=== PATIENT | female | born 1995 | race Caucasian/White ===

== ENCOUNTER 2021-04-13 17:03 | Emergency (ER) | payer MEDICAID, SELFPAY ==
[2021-04-13 19:03] LABS: MANUAL DIFF FLAG NO
[2021-04-13 19:05] LABS: Basophils Percent Auto 0.2 % (0-2); Eosinophils Absolute Auto 0.1 X10*3/uL (0.0-0.4); Eosinophils Percent Auto 1.5 % (0-4); Hematocrit 40.4 % (37-47); Imm Gran Abs Auto 0.02 X10*3/uL (0.00-0.03); Imm Gran Pct Auto 0.2 % (0.0-0.4); Lymphocytes Absolute Auto 2.4 X10*3/uL (1.2-4.9); Lymphocytes Percent Auto 27.6 % (20-40); Mean Corpuscular HGB Conc 34.7 g/dl (31.0-35.0); Mean Corpuscular Hemoglobin 32.4 pg (27.0-33.0); Mean Corpuscular Volume 93.5 fL (80-98); Mean Platelet Volume 9.8 fL (9.4-12.3); Monocytes Absolute Auto 0.5 X10*3/uL (0.1-1.2); Monocytes Percent Auto 5.5 % (2-11); Neutrophils Absolute Auto 5.7 X10*3/uL (2.0-8.3); Platelet Count 202 X10*3/uL (160-400); Red Blood Count 4.32 X10*6/uL (4.20-5.50); Red Cell Distribution Width 12.5 % (11.0-16.0); White Blood Count 8.8 X10*3/uL (4.8-10.8)
[2021-04-13 19:27] LABS: Alanine Aminotransferase 17 U/L (0-31); Albumin Level 3.7 g/dL (3.5-5.0); Alkaline Phosphatase 51 U/L (39-117); Anion Gap 11 (12-20); Aspartate Amino Transferase 17 U/L (5-31); Bilirubin Total 0.2 mg/dL (0.0-1.0); Blood Urea Nitrogen 11 mg/dL (9-16); Calcium 9.3 mg/dL (8.4-10.2); Carbon Dioxide 25 mmol/L (22-29); Chloride 105 mmol/L (96-108); Estimated Glomerular Filt Rate > 60; Glucose Random 104 mg/dL (60-115); Potassium 3.9 mmol/L (3.3-5.1); Sodium 137 mmol/L (135-145); Total Protein 6.9 g/dL (6.5-8.0)
[2021-04-13 21:13] VITALS: BP 106/60; PULSE 67; RESP 16; TEMP 36.8; O2SAT 97; BMI 35.5
[2021-04-13 21:34] LABS: Appearance Urine CLEAR; Color Urine YELLOW; Glucose Urine UA NEG (NEG); Leukocyte Esterase Urine NEG (NEG); Nitrite Urine NEG (NEG); Specific Gravity - Urine 1.025 (1.005-1.025); Urine Blood NEG (NEG); Urine Ketones NEG (NEG); Urine Protein NEG (NEG-TRACE)
[2021-04-13 21:36] LABS: UPreg QC Valid YES; Urine Pregnancy POSITIVE (NEGATIVE)
[2021-04-13 21:51] VITALS: BP 104/61; PULSE 61; RESP 15; TEMP 36.8; O2SAT 99
--- NOTE | 2021-04-13 22:10 | ED.PREGNANCY ---
HPI - General Chief complaint: Dyspnea Stated complaint: Dizziness/Weakness/+Preg Time Seen by Provider: 04/13/21 22:10 Source: patient Mode of arrival: ambulatory History of Present Illness HPI Narrative: 26-year-old female presents with feelings of dizziness and ?fainting?. Her LMP is early January but she states it was shorter than usual. Her dizziness episodes have not been associated with any recent travel, fevers, chills, respiratory for chest pain and denies any nausea, vomiting, abdominal pain, diarrhea, back pain, urinary pain/burning/frequency. Patient sources that she has recently taken a test which was positive and set up an appointment last week for her 1st OB appointment in the part april. Related Data Allergies Allergy/AdvReac Type Severity Reaction Status Date / Time No Known Allergies Allergy Verified 04/13/21 21:12 [No Known Allergies*] Review of Systems Review of Systems: Pertinent positives and negatives as stated in HPI 10 point review of systems is otherwise negative. PMFSH Past Medical History Source: nursing notes reviewed Medical History No known health problems Social History Social History Alcohol intake: never Patient Tobacco Use Status: Never used Tobacco Use of substances other than those prescribed or required for medical reasons: No Advance Directives: No Advance Directives Information Provided: No Physical Exam Vital Signs: Vital Signs: Last Vital Signs Temp 98.2 F 04/13/21 21:51 Pulse 61 04/13/21 21:51 Resp 15 04/13/21 21:51 BP 104/61 04/13/21 21:51 Pulse Ox 99 04/13/21 21:51 Body Mass Index 35.5 VITAL SIGNS: Reviewed. GENERAL: Well developed, well nourished, in no acute distress. HEAD: Normocephalic/atrumatic, EYES: PERRLA, EOMI OROPHARYNX: no oral lesions noted, posterior pharynx clear, moist mucosa NECK: Supple, no adenopathy LUNGS: Normal breath sounds. No adventitious sounds or accessory muscle use. SpO2<99> CARDIOVASCULAR: Regular rate and rhythm without noted murmurs, no JVD or lower extremity edema. ABDOMEN: Soft, non-tender, non-distended with bowel sounds, no CVA tenderness MUSCULOSKELETAL: No tenderness, deformities, or effusions noted on gross inspection. EXTREMITIES: No cyanosis, clubbing or edema. SKIN: Inspection of the skin reveals no rashes NEUROLOGIC: Alert and oriented x 4. Strength and sensation to light touch were grossly intact x 4. Bedside ultrasound: On gross evaluation there is good movement with noted cardiac movement, IUP Course Course Course Narrative: 26-year-old female with history and clinical presentation consistent with vasovagal near-syncope episodes and review of all investigations is otherwise negative. She was counseled extensively on appropriate nutrition and was involved with the bedside ultrasound with demonstration of her fetus movement within the uterus and there is no history to suggest any ectopic features. Patient understands that the ultrasound was strictly a check to see that this fetus was within the uterus and that it is surmised she may be further along than 8 weeks. She was instructed to continue/start vitamins, drink plenty of fluids, and avoid cigarette smoking/alcohol/marijuana/drugs and to also avoid external exposure when possible. MDM - OB/Uterine Contractions Lab Data Result diagrams: 04/13/21 18:59 04/13/21 18:59 Labs: Lab Results 04/13/21 04/13/21 04/13/21 Range/Units 18:59 18:59 21:25 WBC 8.8 (4.8-10.8) X10*3/uL RBC 4.32 (4.20-5.50) X10*6/uL Hgb 14.0 (12.0-16.0) g/dl Hct 40.4 (37-47) % MCV 93.5 (80-98) fL MCH 32.4 (27.0-33.0) pg MCHC 34.7 (31.0-35.0) g/dl RDW 12.5 (11.0-16.0) % Plt Count 202 (160-400) X10*3/uL MPV 9.8 (9.4-12.3) fL Immature Gran % (Auto) 0.2 (0.0-0.4) % Neut % (Auto) 65.0 (45-73) % Lymph % (Auto) 27.6 (20-40) % [place] % (Auto) 5.5 (2-11) % Eos % (Auto) 1.5 (0-4) % Baso % (Auto) 0.2 (0-2) % Lymph # (Auto) 2.4 (1.2-4.9) X10*3/uL [place] # (Auto) 0.5 (0.1-1.2) X10*3/uL Eos # (Auto) 0.1 (0.0-0.4) X10*3/uL Baso # (Auto) 0.0 (0.0-0.2) X10*3/uL Abs Immat Gran (auto) 0.02 (0.00-0.03) X10*3/uL Absolute Neuts (auto) 5.7 (2.0-8.3) X10*3/uL Absolute Nucleated RBC 0.000 (0.0-0.012) X10*3/uL Nucleated RBC % (auto) 0.0 (0.0-0.2) /100WBC Sodium 137 (135-145) mmol/L Potassium 3.9 (3.3-5.1) mmol/L Chloride 105 (96-108) mmol/L Carbon Dioxide 25 (22-29) mmol/L Anion Gap 11 L (12-20) BUN 11 (9-16) mg/dL Creatinine 0.79 (0.5-1.4) mg/dL Estim Creat Clear Calc TNP Estimated GFR > 60 Random Glucose 104 (60-115) mg/dL Calcium 9.3 (8.4-10.2) mg/dL Total Bilirubin 0.2 (0.0-1.0) mg/dL AST 17 (5-31) U/L ALT 17 (0-31) U/L Alkaline Phosphatase 51 (39-117) U/L Total Protein 6.9 (6.5-8.0) g/dL Albumin 3.7 (3.5-5.0) g/dL Urine Color YELLOW Urine Appearance CLEAR Urine pH 6.0 (5.0-8.0) Ur Specific [place] 1.025 (1.005-1.025) Urine Protein NEG (NEG-TRACE) MG/DL Urine Glucose (UA) NEG (NEG) MG/DL Urine Ketones NEG (NEG) MG/DL Urine Blood NEG (NEG) Urine Nitrite NEG (NEG) Ur Leukocyte Esterase NEG (NEG) Urine Test (NEGATIVE) 04/13/21 Range/Units 21:25 WBC (4.8-10.8) X10*3/uL RBC (4.20-5.50) X10*6/uL Hgb (12.0-16.0) g/dl Hct (37-47) % MCV (80-98) fL MCH (27.0-33.0) pg MCHC (31.0-35.0) g/dl RDW (11.0-16.0) % Plt Count (160-400) X10*3/uL MPV (9.4-12.3) fL Immature Gran % (Auto) (0.0-0.4) % Neut % (Auto) (45-73) % Lymph % (Auto) (20-40) % [place] % (Auto) (2-11) % Eos % (Auto) (0-4) % Baso % (Auto) (0-2) % Lymph # (Auto) (1.2-4.9) X10*3/uL [place] # (Auto) (0.1-1.2) X10*3/uL Eos # (Auto) (0.0-0.4) X10*3/uL Baso # (Auto) (0.0-0.2) X10*3/uL Abs Immat Gran (auto) (0.00-0.03) X10*3/uL Absolute Neuts (auto) (2.0-8.3) X10*3/uL Absolute Nucleated RBC (0.0-0.012) X10*3/uL Nucleated RBC % (auto) (0.0-0.2) /100WBC Sodium (135-145) mmol/L Potassium (3.3-5.1) mmol/L Chloride (96-108) mmol/L Carbon Dioxide (22-29) mmol/L Anion Gap (12-20) BUN (9-16) mg/dL Creatinine (0.5-1.4) mg/dL Estim Creat Clear Calc Estimated GFR Random Glucose (60-115) mg/dL Calcium (8.4-10.2) mg/dL Total Bilirubin (0.0-1.0) mg/dL AST (5-31) U/L ALT (0-31) U/L Alkaline Phosphatase (39-117) U/L Total Protein (6.5-8.0) g/dL Albumin (3.5-5.0) g/dL Urine Color Urine Appearance Urine pH (5.0-8.0) Ur Specific [place] (1.005-1.025) Urine Protein (NEG-TRACE) MG/DL Urine Glucose (UA) (NEG) MG/DL Urine Ketones (NEG) MG/DL Urine Blood (NEG) Urine Nitrite (NEG) Ur Leukocyte Esterase (NEG) Urine Test POSITIVE H (NEGATIVE) Discharge Plan Discharge Clinical Impression: Vaso-vagal reaction, Patient Disposition: Home, Self-Care Instructions: Near Syncope (ED), (ED), Vitamins (By mouth) Additional Instructions: Continue to eat and drink well maintaining good nutrition. Follow-up with your appointment that is scheduled with your OB. Please return to the ER if you experience any worsening of symptoms.
--- NOTE | 2021-04-13 22:33 | PC.NURSE ---
Pt alert and oriented x4, calm and cooperative. Pt denies pain. Pt states SOB has improved, does not appear to be in distress. Pt educated on discharge and agrees to plan. No IV in place, vitals stable. Pt ambulated out of ER to private car.
== END 2021-04-13 22:35 | disposition home or self-care (01) ==
PROVIDERS: Emergency Provider Student in an Organized Health Care Education/Training Program
DX: O26.899 Other specified pregnancy related conditions, unspecified trimester (principal); R55 Syncope and collapse; Z3A.00 Weeks of gestation of pregnancy not specified
CPT/HCPCS: 36415; 80053; 81003; 81025; 84702; 85025; 99283; 99284

== ENCOUNTER 2021-05-28 14:41 | Emergency (ER) | payer MEDICAID, SELFPAY ==
[2021-05-28 16:06] VITALS: BP 115/69; PULSE 84; RESP 17; TEMP 37.1; O2SAT 98; BMI 42.0
== END 2021-05-28 17:07 | disposition left against medical advice (07) ==
PROVIDERS: Emergency Provider Emergency Medicine
DX: O46.90 Antepartum hemorrhage, unspecified, unspecified trimester (principal)
CPT/HCPCS: 99281; 99282

== ENCOUNTER 2023-04-04 20:07 | Emergency (ER) | payer MEDICAID, SELFPAY ==
[2023-04-04 20:47] VITALS: BP 119/65; PULSE 71; RESP 18; TEMP 36; O2SAT 100; BMI 44.1
[2023-04-04 22:18] VITALS: BP 104/62; PULSE 65; RESP 17; O2SAT 98
--- NOTE | 2023-04-04 23:23 | ED.GENADULT ---
HPI - General Adult General Chief complaint: Headache Stated complaint: Dizzy & blurry vision 1 week, reaction from meds Time Seen by Provider: 04/04/23 21:58 Source: patient, RN notes reviewed and old records reviewed Mode of arrival: ambulatory Limitations: no limitations History of Present Illness HPI narrative: 28-year-old female presents for evaluation of headache. Patient reports that she has had headache for about she was seen at [facility] days ago She reports that she had a CT scan of her head which did not show any acute findings She also had negative COVID test States that her headache worsened today around 3:00 p.m. shortly after taking sumatriptan and ibuprofen She reports she had ?wonky vision. ? She states that this has since resolved but she still has a 10/10 left-sided headache Denies any fevers, chills, cough, shortness of breath Related Data Previous Rx's Medication Instructions Recorded pyhithfpto-jmtqyhnprrkjd-augtvsin 1 cap PO Q6H PRN headache #12 caps 04/04/23 50 mg-300 mg-40 mg capsule (Fioricet) Allergies Allergy/AdvReac Type Severity Reaction Status Date / Time No Known Allergies Allergy Verified 04/04/23 20:47 [No Known Allergies*] Review of Systems Constitutional: Constitutional: Denies chills, Denies fever(s) and Reports headache(s) Eyes: Eyes: Denies blurry vision and Denies diplopia ENT: Denies vertigo, Denies dizziness, Denies dry mouth and Reports headache(s) Cardiovascular: Cardiovascular: Denies chest pain and Denies dyspnea Respiratory: Respiratory: Denies cough and Denies dyspnea Gastrointestinal: Gastrointestinal: Denies abdominal pain, Denies nausea and Denies vomiting Musculoskeletal: Musculoskeletal: Denies back pain Integumentary/Breasts: Skin/Breast: Denies rash Neurologic: Denies vertigo, Denies dizziness and Reports headache(s) [facility] Past Medical History Medical History No known health problems Social History Social History Alcohol intake: never Patient Tobacco Use Status: Never used Tobacco Advance Directives: No Advance Directives Information Provided: No Physical Exam ED Vital Signs: Vital Signs - 24 hr 04/04/23 20:47 04/04/23 22:18 Temperature 96.8 F Pulse Rate 71 65 Respiratory Rate 18 17 Blood Pressure 119/65 104/62 Pulse Oximetry 100 98 Oxygen Delivery Method Room Air Room Air BMI result Body Mass Index 44.1 Const General: healthy appearing, comfortable, no acute distress, alert and awake Nutritional Appearance: well nourished Orientation/consciousness: patient oriented x3 HENMT Head: Yes normocephalic and Yes atraumatic Throat: Yes posterior oropharynx normal Eyes Eyelids: Yes eyelids normal Conjunctivae: conjunctivae normal Sclerae: sclerae normal Corneas: corneas normal Pupils: Equal, round and reactive pupils present EOM: EOMs intact bilaterally Direct Ophthalmoscopy: normal light reflex, no papilledema and fundi normal bilaterally Neck Neck: Yes full ROM Resp Effort & Inspection: normal respiratory effort, able to speak in complete sentences, no audible wheezes and not labored Auscultation: clear to auscultation bilaterally Cardio Rate: regular rate Rhythm: regular rhythm Skin General skin exam: no rashes or lesions noted and elasticity normal Neuro General: patient oriented x3 Cranial nerves: Yes CN's II-XII intact bilaterally, Yes Equal, round and reactive pupils present and Yes Bilaterally intact EOM present Cognition (Neuro): normal cognition Extrem Other: Moving all extremities well without any obvious deformities Medications Administered Discontinued Medications Generic Name Dose Route Start Last Admin Trade Name Bensonq PRN Reason Stop Dose Admin Acetaminophen/Butalbital/Caffeine 1 tab 04/04/23 22:10 04/04/23 22:24 Butalb/Acetamin/Caff 50/325/40 Tablet PO 04/04/23 22:11 1 tab ONCE ONE Administration Medical Decision Making Medical Decision Making [facility] Narrative: 28-year-old female presents for evaluation of a headache. She states that this headache has been present for over week. She had a workup that included CT scan 3 days ago with [facility]. She has no neurologic deficits on exam. Funduscopic exam does not show any acute abnormalities. Will treat the patient's headache with Fioricet and re-evaluate. Differential Diagnosis Differential Diagnoses: The differential diagnosis associated with the presentation includes Acute headache Tension headache Cluster headache Migraine headache Lab Data [facility] Lab Attestation statement: I reviewed the patient's lab results. No leukocytosis or anemia, normal platelet count. No significant electrolyte abnormalities 04/04/23 21:12 04/04/23 21:12 Labs: Lab Results 04/04/23 Range/Units 21:12 WBC 7.1 (4.8-10.8) X10*3/uL RBC 4.67 (4.20-5.50) X10*6/uL Hgb 14.8 (12.0-16.0) g/dl Hct 43.6 (37.0-47.0) % MCV 93.4 (80.0-98.0) fL MCH 31.7 (27.0-33.0) pg MCHC 33.9 (31.0-35.0) g/dl RDW 12.8 (11.0-16.0) % Plt Count 229 (160-400) X10*3/uL MPV 10.7 (9.4-12.3) fL Immature Gran % (Auto) 0.1 (0.0-0.4) % Neut % (Auto) 50.5 (45-73) % Lymph % (Auto) 42.1 H (20-40) % [place] % (Auto) 5.9 (2-11) % Eos % (Auto) 1.1 (0-4) % Baso % (Auto) 0.3 (0-2) % Lymph # (Auto) 3.0 (1.2-4.9) X10*3/uL [place] # (Auto) 0.4 (0.1-1.2) X10*3/uL Eos # (Auto) 0.1 (0.0-0.4) X10*3/uL Baso # (Auto) 0.0 (0.0-0.2) X10*3/uL Abs Immat Gran (auto) 0.01 (0.00-0.03) X10*3/uL Absolute Neuts (auto) 3.6 (2.0-8.3) x10*3/uL Absolute Nucleated RBC 0.000 (0.0-0.012) X10*3/uL Nucleated RBC % (auto) 0.0 (0.0-0.2) /100WBC Sodium 142 (135-145) mmol/L Potassium 3.8 (3.3-5.1) mmol/L Chloride 109 H (96-108) mmol/L Carbon Dioxide 23 (22-29) mmol/L Anion Gap 14 (12-20) BUN 10 (9-16) mg/dL Creatinine 0.97 (0.5-1.4) mg/dL Estim Creat Clear Calc 101.4 Estimated GFR > 60 Random Glucose 112 (60-115) mg/dL Calcium 9.8 (8.4-10.2) mg/dL Total Bilirubin 0.4 (0.0-1.0) mg/dL AST 24 (5-31) U/L ALT 27 (0-31) U/L Alkaline Phosphatase 59 (39-117) U/L Total Protein 7.6 (6.5-8.0) g/dL Albumin 4.0 (3.5-5.0) g/dL Discharge Plan Discharge Clinical Impression: Headache Patient Disposition: Home, Self-Care Instructions: Acute Headache (ED) Additional Instructions: Take Fioricet as needed for further headache Do not take the sumatriptan if you had an adverse reaction to Follow-up with your primary doctor Your workup in the emergency department today was reassuring Prescriptions: New nwuttkgpgu-tdhgiatloackd-wprn [Fioricet] 50-300-40 mg capsule 1 cap PO Q6H PRN (Reason: headache) Qty: 12 0RF
== END 2023-04-05 00:05 | disposition home or self-care (01) ==
PROVIDERS: Emergency Provider Emergency Medicine; PCP Nurse Practitioner
DX: R51.9 Headache, unspecified (principal)
CPT/HCPCS: 36415; 80053; 85025; 99283; 99284

== ENCOUNTER 2023-07-08 18:37 | Emergency (ER) | payer MEDICAID, SELFPAY ==
[2023-07-08 18:54] VITALS: BP 119/78; PULSE 76; RESP 18; TEMP 37.5; O2SAT 98; BMI 45.1
--- NOTE | 2023-07-08 18:54 | ED.GENADULT ---
HPI - General Adult General Chief complaint: GI Bleed Stated complaint: rectal bleeding Time Seen by Provider: 07/08/23 21:14 Source: patient Mode of arrival: ambulatory Limitations: no limitations History of Present Illness HPI narrative: Patient otherwise healthy with history of hemorrhoids and rectal bleed off and on this time noticed bleeding even without bowel movements mostly bright red blood with drops denies any constipation or rectal pain no abdominal pain no nausea no vomiting no hematuria Related Data Previous Rx's Medication Instructions Recorded zmryzjpzkq-vekjjpitbqusw-iwqqxqiq 1 cap PO Q6H PRN headache #12 caps 04/04/23 50 mg-300 mg-40 mg capsule (Fioricet) hydrocortisone acetate 25 mg 25 mg UT BID #24 ea 07/08/23 rectal suppository (Anusol-HC) Allergies Allergy/AdvReac Type Severity Reaction Status Date / Time No Known Allergies Allergy Verified 04/04/23 20:47 [No Known Allergies*] Review of Systems Review of Systems: Yes all other systems are reviewed and are negative PMFSH Past Medical History Onset Date is defined in the Problem List Problems that require an onset date and time if occurred within 24 hrs of arrival to the ED Aortic Dissection and Rupture; Neurologic impairment; Cardiopulmonary Arrest; Endotracheal Intubation; Insertion or Replacement of Mechanical Circulatory Assist Device Medical History (Updated 07/08/23 @ 21:55 by Martinez Vásquez MD) Hemorrhoids No known health problems Social History Social History Alcohol intake: never Patient Tobacco Use Status: Never used Tobacco Advance Directives: No Advance Directives Information Provided: No Physical Exam ED Vital Signs: Vital Signs - 24 hr 07/08/23 18:54 07/08/23 20:51 Temperature 99.5 F 98.8 F Pulse Rate 76 70 Respiratory Rate 18 16 Blood Pressure 119/78 108/62 Pulse Oximetry 98 98 Oxygen Delivery Method Room Air Room Air BMI result Body Mass Index 45.1 Appearance: Alert. Oriented X3. No acute distress. Eyes: No pallor or icterus ENT: Pharynx normal. Oral Mucosa moist Neck: Normal inspection. Neck supple. CVS: Normal heart rate and rhythm. Pulses normal. Respiratory: No respiratory distress. Abdomen: Soft and nontender. Bowel sounds are present, no mass palpable, no CVA tenderness Rectal: Nontender internal hemorrhoid palpable, small amount of fresh blood on the fingertip Skin: Skin warm and dry. Normal skin color. Normal skin turgor. Course Course Course Narrative: RME: 28 year-old F w/ PMHx cholecystectomy presenting to the ED c/o painless bright red rectal bleeding x2 weeks constant w/every BM (but on and off x 8mos). +lightheaded/dizzy & SOB. denies hemorrhoidal hx, abdominal pain, N/V Labs, UA, Occult stool ordered Full HPI, ROS and PE to be performed by primary ED provider. Medical Decision Making Medical Decision Making [facility] Narrative: Patient with stable Labs with palpable hemorrhoid. advised to use Anusol suppository and avoid straining Differential Diagnosis Differential Diagnoses: The differential diagnosis associated with the presentation includes Hemorrhoidal bleed/diverticulitis Lab Data [facility] Lab Attestation statement: I reviewed the patient's lab results. 07/08/23 19:32 07/08/23 19:32 Labs: Lab Results 07/08/23 07/08/23 Range/Units 19:32 20:57 WBC 6.6 (4.8-10.8) X10*3/uL RBC 4.67 (4.20-5.50) X10*6/uL Hgb 14.7 (12.0-16.0) g/dl Hct 42.1 (37.0-47.0) % MCV 90.1 (80.0-98.0) fL MCH 31.5 (27.0-33.0) pg MCHC 34.9 (31.0-35.0) g/dl RDW 12.3 (11.0-16.0) % Plt Count 214 (160-400) X10*3/uL MPV 9.8 (9.4-12.3) fL Immature Gran % (Auto) 0.2 (0.0-0.4) % Neut % (Auto) 56.7 (45-73) % Lymph % (Auto) 36.5 (20-40) % [place] % (Auto) 5.3 (2-11) % Eos % (Auto) 0.8 (0-4) % Baso % (Auto) 0.5 (0-2) % Lymph # (Auto) 2.4 (1.2-4.9) X10*3/uL [place] # (Auto) 0.4 (0.1-1.2) X10*3/uL Eos # (Auto) 0.1 (0.0-0.4) X10*3/uL Baso # (Auto) 0.0 (0.0-0.2) X10*3/uL Abs Immat Gran (auto) 0.01 (0.00-0.03) X10*3/uL Absolute Neuts (auto) 3.8 (2.0-8.3) x10*3/uL Absolute Nucleated RBC 0.000 (0.0-0.012) X10*3/uL Nucleated RBC % (auto) 0.0 (0.0-0.2) /100WBC PT 11.7 (11.1-13.3) SEC INR 1.0 (0.9-1.1) Sodium 138 (135-145) mmol/L Potassium 4.1 (3.3-5.1) mmol/L Chloride 108 (96-108) mmol/L Carbon Dioxide 21 L (22-29) mmol/L Anion Gap 13 (12-20) BUN 10 (9-16) mg/dL Creatinine 0.99 (0.5-1.4) mg/dL Estim Creat Clear Calc 100.7 Estimated GFR > 60 Random Glucose 118 H (60-115) mg/dL Calcium 9.7 (8.4-10.2) mg/dL Magnesium 1.9 (1.6-2.6) mg/dL Total Bilirubin 0.4 (0.0-1.0) mg/dL Direct Bilirubin 0.1 (0.0-0.5) mg/dL AST 29 (5-31) U/L ALT 30 (0-31) U/L Alkaline Phosphatase 62 (39-117) U/L Total Protein 7.8 (6.5-8.0) g/dL Albumin 3.9 (3.5-5.0) g/dL Lipase 40 (8-78) U/L Urine Color Yellow Urine Appearance Clear Urine pH 5.5 (5.0-9.0) Ur Specific [place] 1.015 (1.005-1.025) Urine Protein Negative (Neg-Trace) mg/dL Urine Glucose (UA) Negative (Negative) mg/dL Urine Ketones Negative (Negative) mg/dL Urine Blood Negative (Negative) Urine Nitrite Negative (Negative) Ur Leukocyte Esterase Negative (Negative) Discharge Plan Discharge Clinical Impression: Hemorrhoids Patient Disposition: Home, Self-Care Instructions: Hemorrhoids (ED) Additional Instructions: Avoid Straining/constipation Use suppository twice daily as advised till heals completely Follow-up with PCP if any concerns Prescriptions: New hydrocortisone acetate [Anusol-HC] 25 mg suppository 25 mg UT BID Qty: 24 0RF No Action vagzzeimen-eypnnywkktjdx-edtr [Fioricet] 50-300-40 mg capsule 1 cap PO Q6H PRN (Reason: headache) Qty: 12 0RF
--- NOTE | 2023-07-08 18:56 | ECG_ITS ---
Test Reason : SOB Blood Pressure : / mmHG Vent. Rate : 066 BPM Atrial Rate : 066 BPM P-R Int : 150 ms QRS Dur : 072 ms QT Int : 384 ms P-R-T Axes : 012 028 -14 degrees QTc Int : 402 ms Normal sinus rhythm Nonspecific T wave abnormality Abnormal ECG When compared with ECG of 06-NOV-2017 00:35, No significant change was found Referred By: Marietta Barraza Electronically Signed By:KAYLA PALMER MD
[2023-07-08 19:36] LABS: MANUAL DIFF FLAG NO
[2023-07-08 19:38] LABS: Basophils Percent Auto 0.5 % (0-2); Eosinophils Absolute Auto 0.1 X10*3/uL (0.0-0.4); Eosinophils Percent Auto 0.8 % (0-4); Hematocrit 42.1 % (37.0-47.0); Hemoglobin 14.7 g/dl (12.0-16.0); Imm Gran Abs Auto 0.01 X10*3/uL (0.00-0.03); Imm Gran Pct Auto 0.2 % (0.0-0.4); Lymphocytes Absolute Auto 2.4 X10*3/uL (1.2-4.9); Lymphocytes Percent Auto 36.5 % (20-40); Mean Corpuscular HGB Conc 34.9 g/dl (31.0-35.0); Mean Corpuscular Hemoglobin 31.5 pg (27.0-33.0); Mean Corpuscular Volume 90.1 fL (80.0-98.0); Mean Platelet Volume 9.8 fL (9.4-12.3); Monocytes Absolute Auto 0.4 X10*3/uL (0.1-1.2); Monocytes Percent Auto 5.3 % (2-11); Neutrophils Absolute Auto 3.8 x10*3/uL (2.0-8.3); Neutrophils Percent Auto 56.7 % (45-73); Platelet Count 214 X10*3/uL (160-400); Red Blood Count 4.67 X10*6/uL (4.20-5.50); Red Cell Distribution Width 12.3 % (11.0-16.0); White Blood Count 6.6 X10*3/uL (4.8-10.8)
[2023-07-08 19:47] LABS: Prothrombin Time 11.7 SEC (11.1-13.3)
[2023-07-08 20:01] LABS: Alanine Aminotransferase 30 U/L (0-31); Albumin Level 3.9 g/dL (3.5-5.0); Alkaline Phosphatase 62 U/L (39-117); Anion Gap 13 (12-20); Aspartate Amino Transferase 29 U/L (5-31); Bilirubin Direct 0.1 mg/dL (0.0-0.5); Bilirubin Total 0.4 mg/dL (0.0-1.0); Blood Urea Nitrogen 10 mg/dL (9-16); Calcium 9.7 mg/dL (8.4-10.2); Carbon Dioxide 21 mmol/L (22-29); Chloride 108 mmol/L (96-108); Creatinine Clr Calc Pharmacy 100.7; Estimated Glomerular Filt Rate > 60; Glucose Random 118 mg/dL (60-115); Lipase 40 U/L (8-78); Magnesium 1.9 mg/dL (1.6-2.6); Potassium 4.1 mmol/L (3.3-5.1); Sodium 138 mmol/L (135-145); Total Protein 7.8 g/dL (6.5-8.0)
[2023-07-08 20:51] VITALS: BP 108/62; PULSE 70; RESP 16; TEMP 37.1; O2SAT 98
--- OUTSIDE RECORDS SUMMARY | 2023-07-08 21:06 | XMS_ITS | Continuity of Care Document ---
Author Name Unknown Organization [facility] Address [address] [place] [address] [address] [place] [address]- Care Team Providers Care Associate Vice President Name Role Phone Ros HYMAN, Laxmi Vazquez Primary Care Physicia n Encounter [facility] ACCT R [id number] Date(s): 04/17/23 - 04/24/[address] [place] [address]- Attending Physician: Not on Staff, Attending MD Referring Physician: Taylor Edwards MD Allergies, Adverse Reactions, Alerts No Known Allergies Immunizations Given and Recorded Vaccine Date Status Refusal Reason tetanus/diphtheria/pertussis, acel(Tdap) 08/01/21 Given tetanus/diphtheria/pertussis, acel(Tdap) 05/04/14 Given Influenza Virus Vaccine (oldterm) 04/27/14 Given influenza virus vaccine, inactivated 1 08/01/11 Gi rosanna 1Admin Note: VIS DATED 01/21/2011 GIVEN. Medications ibuprofen 800 mg oral tablet 800 mg, 1, tablet, By Mouth, Every 8 hours, PRN, (4-6), may give 400mg per patient preference and re-dose with 400mg within 8 hours if needed. Patient should only receive a total of 800mg of Ibuprofen every 8 hours., # 60 tablet, Refills 0, Tot. Ref... Start Date: 11/02/21 Status: Ordered ondansetron 4 mg oral tablet, disintegrating 1 tablet = 4 mg, By Mouth, Every 8 hours, PRN as needed for nausea/vomiting, # 14 tablet, 0 Refills, Maintenance, 01/29/22 10:22:00 EDT, DIS Tablet, [id number], Partial fill upon patient request if the prescription is for a schedule II opioid... Start Date: 01/29/22 Status: Ordered Problem List Condition Confirmation Course Effective Dates Status Health St atus Informant Obesity, morbid, BMI 40.0-49.9 Confirmed Active cardiac echogenic focus, antepartum Confirmed Active History of hemorrhage Confirmed Active Confirmed Active Severe obesity Confirmed Active Maternal varicella, non-immune Confirmed Active Procedures Procedure Date Related Diagnosis Body Site Status Laparoscopic cholecystectomy Completed Vital Signs Most recent to oldest [Reference Range]: 1 Height 158 cm (04/17/23 8:44 AM) Weight 109.8 kg (04/17/23 8:44 AM) Pulse Rate [55-90 bpm] 76 bpm (04/17/23 8:44 AM) Body Mass Index [18.5-24.99 kg/m2] 43.98 kg/m2 *>HHI* (04/17/23 8:44 AM) Blood Pressure [90-138/55-84 mm Hg] 115/ 77mm Hg (04/17/23 8:44 AM) Respiratory Rate [16-30 br/min] 16 br/mi n (04/17/23 8:44 AM) Temperature [96.8-100.4 DegF] 97.8 DegF (04/17/23 8:44 AM) Blood pressure sites Arm, left (04/17/23 8:44 AM) Temperature Route Temporal (04/17/23 8:44 AM) Weight Obtained Via Standing scale (04/17/23 8:44 AM) Social History Social History Type Response Smoking Status Never smoker entered on: 04/27/14 Sex Patient Care team information Care Team Personnel Name: Laxmi Sommer NP Position: Reference Physician Member Role: PCP Address: Address: [address] [place] [id number]- Name: Esther Liu NP Position: [facility] Associate Professional Member Role: Primary Care Nurse Care Team Related Persons Name: CANDY MAR Address: Address: home [address] [place] [address] [place] Name: CANDY MAR Address: home [address] [id number] Name: BART SOLORIO Address: home [address] [place] [address] Name: CLINTON FREITAS Address: home [place] [id number]
--- OUTSIDE RECORDS SUMMARY | 2023-07-08 21:06 | XMS_ITS | Continuity of Care Document ---
Author Name Unknown Organization [facility] Address [address] [place] [address]- Care Team Providers Care Stereotyper Name Role Phone Ros HYMAN, Laxmi Vazquez Primary Care Physicia n Encounter [facility] [place] Date(s): 12/18/22 - 04/04/23 [facility] [address] [place] [address]- Attending Physician: Bobby Canales MD Admitting Physician: Bobby Canales MD Referring Physician: Laxmi Sommer NP Allergies, Adverse Reactions, Alerts No Known Allergies [...] Maintenance, 01/29/22 10:22:00 EDT, DIS Tablet, [id number], Partial fill upon patient request if the prescription is for a schedule II opioid... Start Date: 01/29/22 Status: Ordered Problem List Condition Confirmation Course Effective Dates Status Health St atus Informant Obesity, morbid, BMI 40.0-49.9 Confirmed Active cardiac echogenic focus, antepartum Confirmed Active History of hemorrhage Confirmed Active Confirmed Active Severe obesity Confirmed Active Maternal varicella, non-immune Confirmed Active Social History Social History Type Response Smoking Status Never smoker entered on: 04/27/14 Sex Patient Care team information Care Team Personnel Name: Laxmi Sommer NP Position: Reference Physician Member Role: PCP Address: Address: [address] [place] [address]- Name: Esther Liu NP Position: [facility] Associate Professional Member Role: Primary Care Nurse Care Team Related Persons Name: CANDY MAR Address: [address] Address: home [address] [place] [address] Name: CANDY MAR Address: home [address] [address] Name: BART SOLORIO Address: home [address] [place] [address] Name: CLINTON FREITAS Address: home [place] [id number]
--- OUTSIDE RECORDS SUMMARY | 2023-07-08 21:06 | XMS_ITS | Continuity of Care Document ---
Author Name Unknown Organization [facility] Address [address] [place] [address]- Care Team Providers Care Cryogenics Repairer Name Role Phone Laxmi Sommer NP Primary Care Physicia n Encounter [facility] [place] Date(s): 03/26/23 - 04/29/[address] [address] Attending Physician: Laxmi Sommer NP Admitting Physician: Laxmi Sommer NP Referring Physician: Laxmi Sommer NP Allergies, Adverse [...] Maintenance, 01/29/22 10:22:00 EDT, DIS Tablet, [id number], Partial fill upon patient request if the [...] Reference Physician Member Role: PCP Address: Address: [address] [place] [address]- Name: Esther Liu NP Position: [facility] Associate Professional Member Role: Primary Care Nurse Care Team Related Persons Name: CANDY MAR Address: [address] Address: home [address] [place] [address] Name: CANDY MAR Address: home [address] [address] Name: BART SOLORIO Address: home [address] [place] [address] Name: CLINTON FREITAS Address: home [place] [id number]
--- OUTSIDE RECORDS SUMMARY | 2023-07-08 21:07 | XMS_ITS | Continuity of Care Document ---
Author Name Unknown Organization [facility] ter Address [address] [place] [address]- Care Team Providers Care Internet Media Planner Name Role Phone Ros HYMAN, Laxmi Vazquez Primary Care Physicia n [place] [facility] 06/[place]/23 - 07/01/[address] [address]- Discharge Disposition: A-D/C Walkout Attending Physician: Not on Staff, Attending MD Admitting Physician: Not on Staff, Admitting MD Referring Physician: Not on Staff, Referring MD Allergies, Adverse Reactions, Alerts No Known [...] Maintenance, 01/29/22 10:22:00 EDT, DIS Tablet, [id number], Partial fill upon patient request if the prescription is for a schedule II opioid... Start Date: 01/29/22 Status: Ordered Problem List Condition Confirmation Course Effective Dates Status Health St atus Informant Binge eating disorder, in partial remission Confirmed Active Obesity, morbid, BMI 40.0-49.9 Confirmed Active cardiac echogenic focus, antepartum Confirmed Active History of hemorrhage Confirmed Active Confirmed Active Severe obesity Confirmed Active Maternal varicella, non-immune Confirmed Active Vital Signs Most recent to oldest [Reference Range]: 1 2 Height 158 cm (06/30/23 11:59 PM) Weight 112.5 kg (06/30/23 11:59 PM) Oxygen Saturation [94-100 %] 100 % (07/01/23 2:35 AM) 100 % (06/30/23 11:59 PM) Pulse Rate [55-90 bpm] 71 bpm (07/01/23 2:35 AM) 83 bpm (06/30/23 11:59 PM) Body Mass Index [18.5-24.99 kg/m2] 45.06 kg/m2 *>HHI* (06/30/23 11:59 PM) Blood Pressure [90-138/55-84 mm Hg] 106/ 68mm Hg (07/01/23 2:35 AM) 144/84mm Hg *H* (06/30/23 11:59 PM) Respiratory Rate [16-30 br/min] 16 br/mi n (07/01/23 2:35 AM) 19 br/min (06/30/23 11:59 PM) Temperature [96.8-100.4 DegF] 99.0 DegF (07/01/23 2:35 AM) 97.8 DegF (06/30/23 11:59 PM) Mode of Delivery (Oxygen) Room air (07/01/23 2:35 AM) Room air (06/30/23 11:59 PM) Blood pressure sites Arm, left (07/01/23 2:35 AM) Arm, right (06/30/23 11:59 PM) Temperature Route Oral (07/01/23 2:35 AM) Oral (06/30/23 11:59 PM) Dry Weight 112.5 kg (06/30/23 11:59 PM) Weight Obtained Via Standing scale (06/30/23 11:59 PM) Dry Weight Obtained Via Standing scale (06/30/23 11:59 PM) Social History Social History Type Response Smoking Status Never smoker entered on: 04/27/14 Sex Patient Care team information Care Team Personnel Name: Laxmi Sommer NP Position: Reference Physician Member Role: PCP Address: Address: [address] [place] [address]- Name: Esther Liu NP Position: S Associate Professional Member Role: Primary Care Nurse Care Team Related Persons Name: LIZZETTE MARLANDO Address: home [address] [facility] [address] [place] [address] Name: CANDY MAR Address: [address] Address: home [address] [place] [address] Name: BART SOLORIO Address: home [address] [place] [address] Name: CLINTON FREITAS Address: home [place] [id number]
--- OUTSIDE RECORDS SUMMARY | 2023-07-08 21:07 | XMS_ITS | Continuity of Care Document ---
Author Name Unknown Organization [facility] Address [address] [place] [address]- Care Team Providers Care Sorting Machine Attendant Name Role Phone Ros HYMAN, Laxmi Vazquez Primary Care Physicia n Encounter [facility] [place] Date(s): 03/05/23 - 04/04/23 [facility] [address] [place] [address]- Attending Physician: Judith Grubbs Admitting Physician: Judith Grubbs Referring Physician: trJudith Allergies, Adverse Reactions, Alerts No Known Allergies [...] Maintenance, 01/29/22 10:22:00 EDT, DIS Tablet, [id number], Partial fill upon patient request if the [...] Reference Physician Member Role: PCP Address: Address: [address] [place] [address]- Name: Esther Liu NP Position: [facility] Associate Professional Member Role: Primary Care Nurse Care Team Related Persons Name: CANDY MAR Address: [address] Address: home [address] [place] [address] Name: CANDY MAR Address: [address] [address] Name: BART SOLORIO Address: home [address] [place] [address] Name: CLINTON FREITAS Address: home [place] [id number]
--- OUTSIDE RECORDS SUMMARY | 2023-07-08 21:07 | XMS_ITS | Continuity of Care Document ---
Author Name Unknown Organization [facility] Address [address] [place] [address] [address] [place] [address]- Care Team Providers Care Orientation & Mobility Specialist Name Role Phone Laxmi Sommer NP Primary Care Physicia n Encounter [facility] [place] Date(s): 05/20/23 - 05/27/[address] [place] [address]- Attending Physician: Edelmira Angulo RD Referring Physician: Laxmi Sommer NP Allergies, Adverse [...] Maintenance, 01/29/22 10:22:00 EDT, DIS Tablet, [id number], Partial fill upon patient request if the [...] oldest [Reference Range]: 1 Height 158 cm (05/20/23 10:26 AM) Weight 111.6 kg (05/20/23 10:26 AM) Body Mass Index [18.5-24.99 kg/m2] 44.7 kg/m2 *>HHI* (05/20/23 10:26 AM) Social History Social History Type Response Smoking Status Never smoker entered on: 04/27/14 Sex Patient Care team information Care Team Personnel Name: Laxmi Sommer NP Position: Reference Physician Member Role: PCP Address: Address: [address] [place] [address]- Name: Esther Liu NP Position: [facility] Associate Professional Member Role: Primary Care Nurse Care Team Related Persons Name: CANDY MAR Address: [address] Address: home [address] [place] [address] [place] Name: CANDY MAR Address: home [address] [facility] [address] [place] [address] Name: BART SOLORIO Address: home [address] [place] [address] Name: CLINTON FREITAS Address: home [place] [id number]
[2023-07-08 21:09] LABS: Appearance Urine Clear; Color Urine Yellow; Glucose Urine UA Negative (Negative); Leukocyte Esterase Urine Negative (Negative); Nitrite Urine Negative (Negative); PH 5.5 (5.0-9.0); Specific Gravity - Urine 1.015 (1.005-1.025); Urine Blood Negative (Negative); Urine Ketones Negative (Negative); Urine Protein Negative (Neg-Trace)
== END 2023-07-08 22:24 | disposition home or self-care (01) ==
PROVIDERS: Physician Assistant; Emergency Provider Internal Medicine; PCP Nurse Practitioner
DX: K64.8 Other hemorrhoids (principal); Z90.49 Acquired absence of other specified parts of digestive tract
CPT/HCPCS: 36415; 80048; 80076; 81003; 83690; 83735; 85025; 85610; 93005; 99283; 99284

== ENCOUNTER → 2023-07-08 18:56 | Outpatient (BNV) | payer MEDICAID, SELFPAY | PROVIDERS: Emergency Provider Internal Medicine; PCP Nurse Practitioner; Visit Provider Internal Medicine Cardiovascular Disease | DX: R06.02 Shortness of breath (principal); R94.31 Abnormal electrocardiogram [ECG] [EKG] | CPT/HCPCS: 93010 ==

== ENCOUNTER 2024-03-22 16:21 | Emergency (ER) | payer MEDICAID, SELFPAY ==
--- NOTE | ~2024-03-22 | XR_ITS ---
EXAMINATION: XR CHEST, 2 VIEWS CLINICAL INFORMATION: Pain COMPARISON: 11/06/2017 TECHNIQUE: PA and lateral views of the chest were obtained. FINDINGS: Lungs are clear. No consolidation, pneumothorax, or pleural effusion. Cardiac and mediastinal contours are normal. Pulmonary vasculature is unremarkable. Trachea is midline. Mild degenerative disc disease. Surgical clips in the right upper quadrant. XR/XR chest 2V IMPRESSION: No acute cardiopulmonary findings. Electronically signed by: Candelario Ann MD 03/22/2024 05:28 PM EDT
--- NOTE | ~2024-03-22 | CT_ITS ---
EXAMINATION: CT OF THE THORAX, ABDOMEN, AND PELVIS, WITH CONTRAST CLINICAL INFORMATION: Shortness of breath, chest pain, tenderness to palpation in the upper abdomen COMPARISON: None TECHNIQUE: Multiple axial images were obtained through the chest, abdomen, and pelvis after the administration of 100 mL of intravenous Omnipaque 350. Images were evaluated on independent dedicated 3-D workstation and 3-D images were reconstructed with concurrent radiologist supervision and subsequently interpreted. This CT examination was performed using dose optimization techniques as appropriate, variously including the following: *Automated exposure control *Adjustment of mA and/or kV according to patient size (this includes techniques or standardized protocols for targeted exams where dose is matched to indication/reason for exam; i.e. extremities or head) *Use of iterative reconstruction technique DLP: 1083 mGy-cm FINDINGS: THORAX: Thyroid Gland: The visualized thyroid gland is normal. Lymph Nodes: No supraclavicular, axillary, mediastinal or hilar lymphadenopathy is identified. Cardiovascular: Heart: Normal in size. No coronary artery calcifications. No aortic aneursym. The great vessels of the thorax are normal in course. Airways: The trachea and central bronchi are normal. Lungs: No airspace consolidation. No suspicious nodules or masses. Pleura: No pleural effusion. No pneumothorax. ABDOMEN/PELVIS: Liver: Homogeneous in attenuation. Normal in size. Gallbladder: Absent Biliary System: No intrahepatic or extrahepatic biliary dilation. Pancreas: Homogeneous in attenuation. Spleen: Normal in size. Genitourinary: Bilateral kidneys demonstrate symmetric enhancement. No perinephric fluid collection. No renal calculi. No hydroureteronephrosis. Adrenal Glands: Unremarkable. Reproductive: Uterus and and bilateral adnexa are unremarkable. Gastrointestinal: Post surgical changes of sleeve gastrectomy without perigastric fluid or stranding. The visualized alimentary tract is normal in course. No evidence of obstruction. Appendix: The appendix is seen in its entirety and is unremarkable. Peritoneum: No pneumoperitoneum. No intra-abdominal fluid collection. Vasculature: The abdominal aorta is normal in course and caliber. Lymph Nodes: No pathologically enlarged abdominal or pelvic lymph nodes. SOFT TISSUES/MUSCULOSKELETAL: There is no acute fracture or significant focal osseous lesion. CT/CT abdomen pelvis w IV con IMPRESSION: 1. No acute pathology of the chest, abdomen, or pelvis. 2. Postsurgical changes of sleeve gastrectomy without perigastric fluid. No pneumoperitoneum. Fleischner guidelines were followed. Electronically signed by: Portillo Trinidad DO 03/23/2024 12:17 AM EDT RP
--- NOTE | 2024-03-22 16:23 | ECG_ITS ---
Test Reason : CHEST PAIN Blood Pressure : / mmHG Vent. Rate : 097 BPM Atrial Rate : 097 BPM P-R Int : 138 ms QRS Dur : 066 ms QT Int : 320 ms P-R-T Axes : 065 042 -13 degrees QTc Int : 406 ms Normal sinus rhythm Nonspecific T wave abnormality Abnormal ECG When compared with ECG of 08-JUL-2023 19:39, No significant change was found Referred By: Lilian Rosenbaum Electronically Signed By:LATRICIA AWAN
[2024-03-22 16:35] LABS: MANUAL DIFF FLAG NO
[2024-03-22 16:37] LABS: Basophils Percent Auto 0.2 % (0-2); Eosinophils Percent Auto 0.1 % (0-4); Hematocrit 43.7 % (37.0-47.0); Hemoglobin 15.2 g/dl (12.0-16.0); Imm Gran Abs Auto 0.03 X10*3/uL (0.00-0.03); Imm Gran Pct Auto 0.3 % (0.0-0.4); Lymphocytes Absolute Auto 1.3 X10*3/uL (1.2-4.9); Lymphocytes Percent Auto 11.7 % (20-40); Mean Corpuscular HGB Conc 34.8 g/dl (31.0-35.0); Mean Platelet Volume 10.2 fL (9.4-12.3); Monocytes Absolute Auto 0.6 X10*3/uL (0.1-1.2); Monocytes Percent Auto 5.4 % (2-11); Neutrophils Absolute Auto 8.9 x10*3/uL (2.0-8.3); Neutrophils Percent Auto 82.3 % (45-73); Platelet Count 184 X10*3/uL (160-400); Red Blood Count 4.75 X10*6/uL (4.20-5.50); Red Cell Distribution Width 13.2 % (11.0-16.0); White Blood Count 10.8 X10*3/uL (4.8-10.8)
[2024-03-22 17:04] LABS: Troponin-I High Sensitivity < 2.7 ng/L (<3.5-17.0)
[2024-03-22 17:19] VITALS: BP 95/56; PULSE 106; RESP 18; TEMP 38.2; O2SAT 100; BMI 38.8
--- NOTE | 2024-03-22 17:26 | ED.CHESTPAIN ---
HPI - Chest Pain General Chief Complaint: Chest Pain Stated Complaint: chest pain,fever and headache Time Seen by Provider: 03/22/24 18:09 Source: patient Mode of arrival: ambulatory Limitations: no limitations History of Present Illness HPI narrative: Patient is a 29-year-old female with past medical history of hemorrhoids, cholecystectomy in 2022 at [facility], gastric sleeve 3 months ago at [facility] who presents emergency department for evaluation. She states that she has been experiencing substernal chest pain that wraps around the lower aspect of her left chest into the back at the bottom of her scapula and up to the left shoulder. She states this pain is constant without identifying exacerbating or alleviating factors. She has associated nausea but no vomiting. She has been experiencing intermittent episodes of shortness of breath while at rest, denies this to exacerbate her chest pain. She also is experiencing a sore throat and an intractable headache for 3 days. She reports in the past she had a headache for 8 months, ultimately was seen by a neurologist and had an MRI of the brain obtained without identifiable cause of the headache. She reports that this headache feels similar to what she has experienced in the past without any acute change. She denies dizziness, lightheadedness, vision changes, neck pain or neck stiffness, numbness or tingling of the extremities. She denies symptoms. Denies possibility of reporting that she has a Nexplanon placed. She does state that her children were ill with a COVID-19 infection 2 weeks ago. Related Data Previous Rx's ?Medication ?Instructions ?Recorded rffjgybhcb-zpkashosiodxj-swdfzlqy 1 cap PO Q6H PRN headache #12 caps 04/04/23 50 mg-300 mg-40 mg capsule (Fioricet) hydrocortisone acetate 25 mg 25 mg RI BID #24 ea 07/08/23 rectal suppository (Anusol-HC) Allergies Allergy/AdvReac Type Severity Reaction Status Date / Time No Known Allergies Allergy Verified 03/22/24 17:21 [No Known Allergies*] Review of Systems Review of Systems: Yes all other systems are reviewed and are negative [facility] Past Medical History Attestation statement: The following information was validated with the patient. Source: old records reviewed Medical History Hemorrhoids No known health problems Social History Social History Alcohol intake: never Patient Tobacco Use Status: Never used Tobacco Advance Directives: No Advance Directives Information Provided: No Physical Exam Vital Signs: Vital Signs: Last Vital Signs Temp 98.7 F 03/23/24 00:00 Pulse 64 03/23/24 00:00 Resp 18 03/23/24 00:00 BP 103/66 03/23/24 00:00 Pulse Ox 99 03/23/24 00:00 O2 Del Method Room Air 03/23/24 00:00 BMI result Body Mass Index 38.8 Appearance: Alert.?Oriented to person, place and time. No acute distress.?Normal affect. Eyes: Pupils equal, round and reactive to light.? ENT: Pharynx mildly erythematous without exudates or tonsillar hypertrophy. No trismus. No drooling. Uvula is midline.?? Neck: Normal inspection.? Neck supple.??No cervical adenopathy. CVS: Heart sounds normal. Normal heart rate and rhythm.? Pulses normal.?? Respiratory: No respiratory distress.? Lung sounds clear to auscultation bilaterally?? Abdomen: Soft with diffuse upper abdominal tenderness upon palpation. No rigidity or guarding. No lower quadrant tenderness. No CVA tenderness. Normoactive bowel sounds. Skin: Skin warm and dry.? Normal skin color.? Extremities: No lower extremity edema.? No calf ttp? Neuro: Moves all extremities spontaneously. Sensation intact bilaterally. No focal neuro deficits. Ambulates with normal steady gait. Course Course Course Narrative: Rapid medical exam performed by Lilian Rosenbaum PA-C. Patient is a 29-year-old female who presents with viral symptoms x3 days. Associated headache, sore throat and generalized myalgias. On exam, the patient's lungs are clear to auscultation, her oropharynx is erythematous without exudate. I am concerned for sepsis, her blood pressure is soft 95 systolic, she is mildly tachycardic HR 106, she is febrile 100.8. To note, the patient was initially assessed, she was not febrile at that time. We will be adding blood cultures, lactate, giving ibuprofen and Tylenol. Also adding a viral swab. A chest x-ray was already ordered it is yet to be read. We are currently seeking placement within the ER at this time. Medications Administered Discontinued Medications Generic Name Dose Route Start Last Admin Trade Name Luc PRN Reason Stop Dose Admin Acetaminophen 975 mg 03/22/24 17:24 03/22/24 17:33 Acetaminophen 325 Mg Tablet PO 03/22/24 17:25 975 mg ONCE ONE Administration Sodium Chloride 1,503 mls @ 1,503 mls/hr 03/22/24 18:09 03/22/24 20:06 Ns IV 03/22/24 19:08 Infused .Q1H STA Infusion Ceftriaxone Sodium 1 gm/ 50 mls @ 100 mls/hr 03/22/24 18:24 03/22/24 19:26 Sodium Chloride IV 03/22/24 18:53 Infused ONCE ONE Infusion Ibuprofen 600 mg 03/22/24 17:24 03/22/24 17:32 Ibuprofen 600 Mg Tablet PO 03/22/24 17:25 600 mg ONCE ONE Administration Iohexol 100 ml 03/22/24 21:49 03/22/24 21:50 Iohexol 350 Mg/Ml 100 Ml Infus..Btl IV 03/22/24 21:50 100 ml ONCE ONE Administration Medical Decision Making Medical Decision Making MDM Narrative: Patient is a 29-year-old female with past medical history of hemorrhoids, cholecystectomy in 2022 at [facility], gastric sleeve 3 months ago at [facility] While in the waiting room patient was noted to be febrile 100.8, tachycardic 106, with soft BP systolic 95/56. Meeting SIRS criteria. Was brought back to the main ED, a sepsis fluid bolus normal saline 30 mL per kg ordered at ideal body weight due to obesity. This may be due to viral etiology however will cover with Rocephin while pending CXR, viral serologies and strep a testing. On examination she does have mild diffuse tenderness across the upper abdomen. On review of her labs obtained prior to my assumption of care CBC is without leukocytosis there is however a left shift. No anemia. No electrolyte derangement. No CHRISTIAN. Lactic acid is 2.2. LFTs overall unremarkable aside from mildly elevated T bili 1.1, lipase normal. Although she has had a cholecystectomy, CBD stone may be possible, pancreatitis, possible complication from recent bariatric surgery. Suspicion for ACS, EKG without acute ischemic pathology, high sensitive troponin within normal range. Wells negative, unlikely PE. She has no nuchal rigidity to suggest meningitis. No symptoms, no CVAT to suggest pyelonephritis, obstructive calculi. Differential Diagnosis Differential Diagnoses: The differential diagnosis associated with the presentation includes (See narrative above) Admission/Observation Consideration of admission/observation: Escalation of care including admission/observation considered (See narrative above and course narrative for further detail) Lab Data MDM Lab Attestation statement: I reviewed the patient's lab results. (See narrative above) 03/22/24 16:30 03/22/24 16:30 Labs: Lab Results 03/22/24 03/22/24 03/22/24 Range/Units 16:30 17:49 18:26 WBC 10.8 (4.8-10.8) X10*3/uL RBC 4.75 (4.20-5.50) X10*6/uL Hgb 15.2 (12.0-16.0) g/dl Hct 43.7 (37.0-47.0) % MCV 92.0 (80.0-98.0) fL MCH 32.0 (27.0-33.0) pg MCHC 34.8 (31.0-35.0) g/dl RDW 13.2 (11.0-16.0) % Plt Count 184 (160-400) X10*3/uL MPV 10.2 (9.4-12.3) fL Immature Gran % (Auto) 0.3 (0.0-0.4) % Neut % (Auto) 82.3 H (45-73) % Lymph % (Auto) 11.7 L (20-40) % Cataño % (Auto) 5.4 (2-11) % Eos % (Auto) 0.1 (0-4) % Baso % (Auto) 0.2 (0-2) % Lymph # (Auto) 1.3 (1.2-4.9) X10*3/uL Cataño # (Auto) 0.6 (0.1-1.2) X10*3/uL Eos # (Auto) 0.0 (0.0-0.4) X10*3/uL Baso # (Auto) 0.0 (0.0-0.2) X10*3/uL Abs Immat Gran (auto) 0.03 (0.00-0.03) X10*3/uL Absolute Neuts (auto) 8.9 H (2.0-8.3) x10*3/uL Absolute Nucleated RBC 0.000 (0.0-0.012) X10*3/uL Nucleated RBC % (auto) 0.0 (0.0-0.2) /100WBC Sodium 137 (135-145) mmol/L Potassium 3.9 (3.3-5.1) mmol/L Chloride 107 (96-108) mmol/L Carbon Dioxide 24 (22-29) mmol/L Anion Gap 10 L (12-20) BUN 6 L (9-16) mg/dL Creatinine 0.88 (0.5-1.4) mg/dL Estim Creat Clear Calc 102.9 Estimated GFR > 60 Random Glucose 101 (60-115) mg/dL Lactic Acid 2.2 H* (0.5-2.0) mmol/L Lactic Acid F/U @ 2Hr (0.5-2.0) mmol/L Calcium 9.9 (8.4-10.2) mg/dL Magnesium 2.0 (1.6-2.6) mg/dL Total Bilirubin 1.1 H (0.0-1.0) mg/dL AST 21 (5-31) U/L ALT 25 (0-31) U/L Alkaline Phosphatase 68 (39-117) U/L Troponin I High Sens < 2.7 (<3.5-17.0) ng/L Total Protein 7.8 (6.5-8.0) g/dL Albumin 4.2 (3.5-5.0) g/dL Lipase 37 (8-78) U/L Beta HCG, Quant < 2 mIU/mL Influenza Type A (PCR) NEGATIVE (Negative) Influenza Type B (PCR) NEGATIVE (Negative) RSV RNA Qual (PCR) NEGATIVE (Negative) SARS-CoV-2 RNA (RT-PCR) NEGATIVE (Negative) S. pyogenes GrpA GAUTAM Negative (Negative) 03/22/24 Range/Units 20:12 WBC (4.8-10.8) X10*3/uL RBC (4.20-5.50) X10*6/uL Hgb (12.0-16.0) g/dl Hct (37.0-47.0) % MCV (80.0-98.0) fL MCH (27.0-33.0) pg MCHC (31.0-35.0) g/dl RDW (11.0-16.0) % Plt Count (160-400) X10*3/uL MPV (9.4-12.3) fL Immature Gran % (Auto) (0.0-0.4) % Neut % (Auto) (45-73) % Lymph % (Auto) (20-40) % Cataño % (Auto) (2-11) % Eos % (Auto) (0-4) % Baso % (Auto) (0-2) % Lymph # (Auto) (1.2-4.9) X10*3/uL Cataño # (Auto) (0.1-1.2) X10*3/uL Eos # (Auto) (0.0-0.4) X10*3/uL Baso # (Auto) (0.0-0.2) X10*3/uL Abs Immat Gran (auto) (0.00-0.03) X10*3/uL Absolute Neuts (auto) (2.0-8.3) x10*3/uL Absolute Nucleated RBC (0.0-0.012) X10*3/uL Nucleated RBC % (auto) (0.0-0.2) /100WBC Sodium (135-145) mmol/L Potassium (3.3-5.1) mmol/L Chloride (96-108) mmol/L Carbon Dioxide (22-29) mmol/L Anion Gap (12-20) BUN (9-16) mg/dL Creatinine (0.5-1.4) mg/dL Estim Creat Clear Calc Estimated GFR Random Glucose (60-115) mg/dL Lactic Acid (0.5-2.0) mmol/L Lactic Acid F/U @ 2Hr 1.0 (0.5-2.0) mmol/L Calcium (8.4-10.2) mg/dL Magnesium (1.6-2.6) mg/dL Total Bilirubin (0.0-1.0) mg/dL AST (5-31) U/L ALT (0-31) U/L Alkaline Phosphatase (39-117) U/L Troponin I High Sens (<3.5-17.0) ng/L Total Protein (6.5-8.0) g/dL Albumin (3.5-5.0) g/dL Lipase (8-78) U/L Beta HCG, Quant mIU/mL Influenza Type A (PCR) (Negative) Influenza Type B (PCR) (Negative) RSV RNA Qual (PCR) (Negative) SARS-CoV-2 RNA (RT-PCR) (Negative) S. pyogenes GrpA GAUTAM (Negative) Independent Interpretation I performed an independent interpretation of an: EKG and Plain X-Ray (No consolidation or infiltrate) Interpretation: Rate: 97 Rhythm:? Normal sinus rhythm Normal P waves.? Normal WILVER.?? Normal QRS complex.?? ST T wave :??No ST elevation, no ST depression, T-wave inversion in lead !!!, aVF, V3, V4 as seen on prior qTC:406 The study has been interpreted contemporaneously by me. Radiology Impression Discussion of test interpretation with radiology: I have reviewed the radiologist's reading. Radiologist Impression: XR/XR chest 2V IMPRESSION: No acute cardiopulmonary findings. CT/CT chest w IV con IMPRESSION: 1. No acute pathology of the chest, abdomen, or pelvis. 2. Postsurgical changes of sleeve gastrectomy without perigastric fluid. No pneumoperitoneum. Fleischner guidelines were followed. External Record Review External record reviewed: Outpatient record Discharge Plan Discharge Clinical Impression: Acute viral syndrome Patient Disposition: Home, Self-Care Instructions: Viral Syndrome (ED) Additional Instructions: As discussed testing for COVID-19, influenza, RSV, and strep were negative today. Your blood work was very reassuring. Imaging is without evidence of pneumonia. No sign of complication from your recent bariatric surgery. Be sure to stay well hydrated and drink plenty of fluids. You can take ibuprofen 200 mg, 3 tablets (600mg) every 6-8 hours as needed for pain, in addition to Tylenol 500 mg, 2 tablets (1,000mg) every 4-6 hours as needed for pain, but not to exceed 3 doses daily (3,000mg).? Prescriptions: No Action hydrocortisone acetate [Anusol-HC] 25 mg suppository 25 mg RI BID Qty: 24 0RF ayayzcsegh-btftjuyisfeyb-vuej [Fioricet] 50-300-40 mg capsule 1 cap PO Q6H PRN (Reason: headache) Qty: 12 0RF Referrals: Physician,Nonstaff [Primary Care Provider] - Stand Alone Forms: Work/School Release Print Language: Puerto Rican
[2024-03-22] MEDS: Ibuprofen 600 MG TABLET PO (17:32)
[2024-03-22] MEDS: Acetaminophen 325 MG TABLET 975 MG PO (17:33)
[2024-03-22 17:53] LABS: Alanine Aminotransferase 25 U/L (0-31); Albumin Level 4.2 g/dL (3.5-5.0); Alkaline Phosphatase 68 U/L (39-117); Anion Gap 10 (12-20); Aspartate Amino Transferase 21 U/L (5-31); Bilirubin Total 1.1 mg/dL (0.0-1.0); Blood Urea Nitrogen 6 mg/dL (9-16); Calcium 9.9 mg/dL (8.4-10.2); Carbon Dioxide 24 mmol/L (22-29); Chloride 107 mmol/L (96-108); Creatinine Clr Calc Pharmacy 102.9; Estimated Glomerular Filt Rate > 60; Glucose Random 101 mg/dL (60-115); Potassium 3.9 mmol/L (3.3-5.1); Sodium 137 mmol/L (135-145); Total Protein 7.8 g/dL (6.5-8.0)
[2024-03-22 17:56] LABS: HCG Quantitative < 2 mIU/mL
[2024-03-22 18:10] VITALS: BP 92/58; PULSE 97; RESP 16; TEMP 37.5; O2SAT 99
--- OUTSIDE RECORDS SUMMARY | 2024-03-22 18:17 | XMS_ITS | Continuity of Care Document ---
Author Organization [facility] Address [address] [place] [address] Dr [address] [place] [address]- Care Team Providers Care Tunnel Mucker Name Role Phone Ros HYMAN, Laxmi Vazquez Primary Care Physicia n Encounter [facility] Date(s): 08/13/23 - 08/20/23 [facility] [address] [place] [address]- Attending Physician: Edelmira Angulo RD Allergies, Adverse Reactions, Alerts No Known Allergies Immunizations Given and Recorded Vaccine Date Status Refusal Reason tetanus/diphtheria/pertussis, acel(Tdap) 08/01/21 Given tetanus/diphtheria/pertussis, acel(Tdap) 05/04/14 Given Influenza Virus Vaccine (oldterm) 04/27/14 Given influenza virus vaccine, inactivated 1 08/01/11 Gi rosanna 1Admin Note: VIS DATED 01/21/2011 GIVEN. Medications Medrol Dosepak 4 mg oral tablet 1 pack/packet, By Mouth, Once, # 21 tablet, 0 Refills, Soft Stop, 08/07/23 11:51:00 EST, Tablet, [id number], Partial fill upon patient request if the prescription is for a schedule II opioid drug., 158, cm, 08/07/23 11:10:00 EST, Height, 113,... Start Date: 08/07/23 Status: Ordered naratriptan 1 mg oral tablet 1 tablet = 1 mg, By Mouth, Daily, PRN for migraine headache, may repeat dose once in 4 hours, max 2tab sin 24 hrs, # 9 tablet, 2 Refills, Acute 08/07/24 11:50:00 EST, 08/07/23 11:50:00 EST, Tablet, [id number], Partial fill upon patient re... Start Date: 08/07/23 Stop Date: 08/07/24 Status: Ordered nortriptyline 25 mg oral capsule 25 mg, 1, capsule, By Mouth, Daily at bedtime, # 30 capsule, Refills 5, Tot. Refills 5, Maintenance, 08/07/23 11:49:00 EST, Route to Pharmacy Electronically, [id number], Partial fill upon patient request if the prescription is for a schedule I... Start Date: 08/07/23 Stop Date: 02/03/24 Status: Ordered Problem List Condition Confirmation Course [...] Reference Physician Member Role: PCP Address: Address: [address] [place] [id number] Name: Esther Liu NP Position: [facility] Associate Professional Member Role: Primary Care Nurse Care Team Related Persons Name: CANDY MAR Address: [id number] Address: home [address] [place] [address] Name: CANDY MAR Address: [address] [address] Name: BART SOLORIO Address: home [address] [place] [address] Name: CLINTON FREITAS Address: home [place] [id number]
--- OUTSIDE RECORDS SUMMARY | 2024-03-22 18:17 | XMS_ITS | Continuity of Care Document ---
Author Organization [facility] Address [address] [place] [address] [address] [place] [address]- Care Team Providers Care Care Provider Name Role Phone Ros HYMAN, Laxmi Vazquez Primary Care Physicia n [place] [facility] [place] 12/29/23 - 01/05/[address] [place] [address]- Encounter Diagnosis S/P laparoscopic sleeve gastrectomy(Discharge Diagnosis) - 12/24/23 Attending Physician: Feli Mckenzie MD Allergies, Adverse Reactions, Alerts No Known Allergies Immunizations Given and Recorded Vaccine Date Status Refusal Reason tetanus/diphtheria/pertussis, acel(Tdap) 08/01/21 Given tetanus/diphtheria/pertussis, acel(Tdap) 05/04/14 Given Influenza Virus Vaccine (oldterm) 04/27/14 Given influenza virus vaccine, inactivated 1 08/01/11 Gi rosanna 1Admin Note: VIS DATED 01/21/2011 GIVEN. Medications acetaminophen 325 mg oral tablet 975 mg, By Mouth, Every 6 hours, Refills 0, Maintenance, 12/17/23 15:17:00 EDT, Partial fill upon patient request if the prescription is for a schedule II opioid drug. Start Date: 12/17/23 Status: Ordered Colace sodium 100 mg oral capsule 100 mg, 1, capsule, By Mouth, 2 times a day, PRN, # 20 capsule, Refills 0, Tot. Refills 0, Maintenance, for constipation, 12/17/23 15:18:00 EDT, Route to Pharmacy Electronically, [facility], Partial fill upon patient request if the presc... Start Date: 12/17/23 Status: Ordered Multivitamin 0 Refills, Maintenance, 12/29/23 9:03:00 EDT, Partial fill upon patient request if the prescriptionis for a schedule II opioid drug. Start Date: 12/29/23 Status: Ordered omeprazole 20 mg oral enteric coated capsule 1 capsule = 20 mg, By Mouth, 2 times a day, # 60 capsule, 3 Refills, Maintenance, 12/17/23 15:18:00EDT, EC Capsule, [facility], Partial fill upon patient request if the prescription isfor a schedule II opioid drug., 158, cm, 12/17/23 1... Start Date: 12/17/23 Status: Ordered oxyCODONE 5 mg oral tablet 5 mg, 1, tablet, By Mouth, Every 6 hours, PRN, # 8 tablet, Refills 0, Tot. Refills 0, Maintenance, Pain , Moderate, 12/17/23 15:17:00 EDT, Route to Pharmacy Electronically, [facility], Partial fill upon patient request if the prescriptio... Start Date: 12/17/23 Status: Ordered Remove Patch 1 each, Topically, Every 72 hours, 0 Refills, Maintenance, Patch Start Date: 12/17/23 Status: Ordered Scopolamine = 1 mg, Topically, Every 72 hours, 0 Refills, Maintenance, 12/17/23 15:17:00 EDT, Patch, Partial fill upon patient request if the prescription is for a schedule II opioid drug. Start Date: 12/17/23 Status: Ordered Problem List Condition Confirmation Course Effective Dates Status Health St atus Informant Binge eating disorder, in partial remission Confirmed Active Obesity, morbid, BMI 40.0-49.9 Confirmed Active cardiac echogenic focus, antepartum Confirmed Active History of hemorrhage Confirmed Active Confirmed Active Rectal bleeding Confirmed Active Severe obesity Confirmed Active Maternal varicella, non-immune Confirmed Active White matter disease, unspecified MRI brain 2023 06 Confirmed Active 1Normal MRV Diagnosis Diagnosis Type Effective Dates Health Status Clinical Service Informant S/P laparoscopic sleeve gastrectomy Discharge Diagnosis 12/24/23 Vital Signs Most recent to oldest [Reference Range]: 1 Height 158 cm (12/29/23 9:04 AM) Weight 103.9 kg (12/29/23 9:04 AM) Pulse Rate [55-90 bpm] 86 bpm (12/29/23 9:04 AM) Body Mass Index [18.5-24.99 kg/m2] 41.62 kg/m2 *>HHI* (12/29/23 9:04 AM) Blood Pressure [90-138/55-84 mm Hg] 125/ 84mm Hg (12/29/23 9:04 AM) Temperature [96.8-100.4 DegF] 97.4 DegF (12/29/23 9:04 AM) Blood pressure sites Arm, left (12/29/23 9:04 AM) Temperature Route Temporal (12/29/23 9:04 AM) Social History Social History Type Response Smoking Status Never smoker entered on: 04/27/14 Sex Patient Care team information Care Team Personnel Name: Roger RODRIGUEZ, Felisa Tsang Position: S RN Member Role: Primary Care Nurse Name: Laxmi Sommer NP Position: Reference Physician Member Role: PCP Address: Address: [address] [place] [address]- Name: Nhung Mcfadden RN Position: S RN Member Role: Primary Care Nurse Name: Esther Liu NP Position: [facility] Associate Professional Member Role: Primary Care Nurse Care Team Related Persons Name: CANDY MAR Address: home [address] [address] Name: CANDY MAR Address: [address] Address: home [address] [place] [address] [place] Name: BART SOLORIO Address: home [address] [place] [address] Name: CLINTON FREITAS Address: [place] [address]
--- OUTSIDE RECORDS SUMMARY | 2024-03-22 18:17 | XMS_ITS | Continuity of Care Document ---
Author Organization [facility] Address [address] [place] [address]- Care Team Providers Care Information Systems Operator Name Role Phone Laxmi Sommer NP Primary Care Physicia n [place] [facility] [id number] Date(s): 08/12/23 - 12/10/23 [facility] [address] [place] [address]- Attending Physician: Romero Ford Admitting Physician: Romero Ford Referring Physician: Laxmi Sommer NP Allergies, Adverse Reactions, Alerts No Known Allergies Immunizations Given and Recorded Vaccine Date Status Refusal Reason tetanus/diphtheria/pertussis, acel(Tdap) 08/01/21 Given tetanus/diphtheria/pertussis, acel(Tdap) 05/04/14 Given Influenza Virus Vaccine (oldterm) 04/27/14 Given influenza virus vaccine, inactivated 1 08/01/11 Gi rosanna 1Admin Note: VIS DATED 01/21/2011 GIVEN. Medications colestipol 1 gm oral tablet 2 tablet = 2 Gm, By Mouth, 2 times a day, # 120 tablet, 11 Refills, Maintenance, 09/16/23 11:27:00 EDT, Tablet, [id number], 158, cm, 09/16/23 11:05:00 EDT, Height, 113, kg, 07/03/23 2:08:00 EST, Dry Weight Start Date: 09/16/23 Stop Date: 09/10/24 Status: Ordered NuLYTELY Lemon [place] oral powder for reconstitution See Instructions, as directed by office, # 1 each, 0 Refills, Maintenance, 09/16/23 11:36:00 EDT, REC Powder, [id number], ok to sub for any gallon prep, 158, cm, 09/16/23 11:05:00 EDT, Height, 113, kg, 07/03/23 2:08:00 EST, Dry Weight Start Date: 09/16/23 Status: Ordered Problem List Condition Confirmation Course [...] brain 2023 06 Confirmed Active 1Normal MRV Social History Social History Type Response Smoking Status Never smoker entered on: 04/27/14 Sex Patient Care team information Care Team Personnel Name: Laxmi Sommer NP Position: Reference Physician Member Role: PCP Address: Address: [address] [place] [address]- Name: Esther Liu NP Position: [facility] Associate Professional Member Role: Primary Care Nurse Care Team Related Persons Name: CANDY MAR Address: [address] Address: home [address] [place] [address] [place] Name: CANDY MAR Address: home [address] [address] Name: BART SOLORIO Address: home [address] [place] [address] Name: CLINTON FREITAS Address: home [place] [id number]
--- OUTSIDE RECORDS SUMMARY | 2024-03-22 18:17 | XMS_ITS | Continuity of Care Document ---
Author Organization [facility] Address [address] [place] [address] ve [address] [place] [address]- Care Team Providers Care Gas Load Dispatcher Name Role Phone Laxmi Sommer NP Primary Care Physicia n [place] [facility] [place](s): 08/18/23 - 09/17/[address] [place] [address]- Allergies, Adverse Reactions, Alerts No Known Allergies [...] Stop Date: 09/10/24 Status: Ordered NuLYTELY Lemon [place] oral powder for reconstitution See Instructions, as [...] Reference Physician Member Role: PCP Address: Address: [address] [place] [address] Name: Esther Liu NP Position: [facility] Associate Professional Member Role: Primary Care Nurse Care Team Related Persons Name: CANDY MAR Address: [id number] Address: home [address] [place] [address] Name: CANDY MAR Address: home [address] [facility] [address] [place] [address] Name: BART SOLORIO Address: home [address] [place] [address] Name: CLINTON FREITAS Address: home [place] [id number]
--- OUTSIDE RECORDS SUMMARY | 2024-03-22 18:17 | XMS_ITS | Continuity of Care Document ---
Author Organization [facility] Address [address] [facility] [place] [address]- Care Team Providers Care Primer Boxer Name Role Phone Ros HYMAN, Laxmi Vazquez Primary Care Physicia n Encounter [facility] [place] Date(s): 06/20/23 - 10/18/23 [facility] [address] [facility] [address] [place] [address]- Attending Physician: Prachi Morillo MD Referring Physician: Laxmi Sommer NP Allergies, [...] Stop Date: 09/10/24 Status: Ordered NuLYTELY Lemon [place] oral powder for reconstitution See Instructions, as [...] Reference Physician Member Role: PCP Address: Address: [address] [place] [id number] Name: Esther Liu NP Position: [facility] Associate Professional Member Role: Primary Care Nurse Care Team Related Persons Name: CANDY MAR Address: [address] Address: home [address] [place] [address] Name: CANDY MAR Address: home [address] [address] Name: BART SOLORIO Address: home [address] [place] [address] Name: CLINTON FREITAS Address: [place] [address]
--- OUTSIDE RECORDS SUMMARY | 2024-03-22 18:17 | XMS_ITS | Continuity of Care Document ---
Author Organization [facility] Address [address] [place] [address] ve [address] [place] [address]- Care Team Providers Care Back Shoe Cutter Name Role Phone aLxmi Sommer NP Primary Care Physicia n Encounter [facility] [place] Date(s): 09/08/23 - 10/08/23 [facility] [address] [place] [address]- Allergies, Adverse Reactions, Alerts No Known Allergies [...] Stop Date: 09/10/24 Status: Ordered NuLYTELY Lemon [place] oral powder for reconstitution See Instructions, as [...] Reference Physician Member Role: PCP Address: Address: [address] [place] [address]- Name: Esther Liu NP Position: [facility] Associate Professional Member Role: Primary Care Nurse Care Team Related Persons Name: CANDY MRA Address: [address] Address: home [address] [place] [address] Name: CANDY MAR Address: home [address] [facility] [address] [place] [address] Name: BART SOLORIO Address: home [address] [place] [address] Name: CLINTON FREITAS Address: home [place] [address]
--- OUTSIDE RECORDS SUMMARY | 2024-03-22 18:17 | XMS_ITS | Continuity of Care Document ---
Author Organization [facility] Address [address] [place] [address] [address] [place] [address]- Care Team Providers Care Labor Relations Teacher Name Role Phone Ros HYMAN, Laxmi Vazquez Primary Care Physicia n Encounter [facility] [place] Date(s): 11/24/23 - 12/01/23 [facility] [address] [place] [address]- Encounter Diagnosis Morbid obesity with BMI of 40.0-44.9, adult(Discharge Diagnosis) - 11/19/23 Attending Physician: Feli Mckenzie MD Allergies, Adverse [...] Stop Date: 09/10/24 Status: Ordered NuLYTELY Lemon [place] oral powder for reconstitution See Instructions, as [...] Confirmed Active Maternal varicella, non-immune Confirmed Active Diagnosis Diagnosis Type Effective Dates Health Status Cl inical Service Informant Morbid obesity with BMI of 40.0-44.9, adult Discharge Diagnosis 11/19/23 Vital Signs Most recent to oldest [Reference Range]: 1 Height 158 cm (11/24/23 9:56 AM) Weight 113.7 kg (11/24/23 9:56 AM) Pulse Rate [55-90 bpm] 72 bpm (11/24/23 9:56 AM) Body Mass Index [18.5-24.99 kg/m2] 45.55 kg/m2 *>HHI* (11/24/23 9:56 AM) Blood Pressure [90-138/55-84 mm Hg] 108/ 73mm Hg (11/24/23 9:56 AM) Temperature [96.8-100.4 DegF] 98.3 DegF (11/24/23 9:56 AM) Blood pressure sites Arm, left (11/24/23 9:56 AM) Temperature Route Temporal (11/24/23 9:56 AM) Social History Social History Type Response Smoking Status Never smoker entered on: 04/27/14 Sex Patient Care team information Care Team Personnel Name: Laxmi Sommer NP Position: Reference Physician Member Role: PCP Address: Address: [address] [place] [address]- Name: Esther Liu NP Position: S Associate Professional Member Role: Primary Care Nurse Care Team Related Persons Name: REESE MARO Address: [address] Address: home [address] [place] [address] Name: LIZZETTE MARLANDO Address: home [address] [facility] [address] [place] [address] Name: BART SOLORIO Address: home [address] [place] [address] Name: CLINTON FREITAS Address: home [place] [address]
--- OUTSIDE RECORDS SUMMARY | 2024-03-22 18:18 | XMS_ITS | Continuity of Care Document ---
Author Organization [facility] Address [address] [place] [address]- Care Team Providers Care Newspaper Distributor Supervisor Name Role Phone Ros HYMAN, Laxmi Vazquez Primary Care Physicia n Encounter [facility] [place] R [id number] Date(s): 12/02/23 - 12/09/23 [facility] [address] [place] [address]- Attending Physician: Jared Mcclendon DO Referring Physician: Magaly MOSS, Feli Allergies, Adverse Reactions, Alerts No Known Allergies [...] Stop Date: 09/10/24 Status: Ordered NuLYTELY Lemon [place] oral powder for reconstitution See Instructions, as [...] White matter disease, unspecified MRI brain 2023 1 Confirmed Active 1Normal MRV Vital Signs Most recent to oldest [Reference Range]: 1 Height 158 cm (12/02/23 9:20 AM) Weight 113.7 kg (12/02/23 9:20 AM) Oxygen Saturation [94-100 %] 100 % (12/02/23 9:20 AM) Pulse Rate [55-90 bpm] 73 bpm (12/02/23 9:20 AM) Body Mass Index [18.5-24.99 kg/m2] 45.55 kg/m2 *>HHI* (12/02/23 9:20 AM) Blood Pressure [90-138/55-84 mm Hg] 108/ 64mm Hg (12/02/23 9:20 AM) Respiratory Rate [16-30 br/min] 16 br/mi n (12/02/23 9:20 AM) Mode of Delivery (Oxygen) Room air (12/02/23 9:20 AM) Blood pressure sites Arm, left (12/02/23 9:20 AM) Weight Obtained Via Standing scale (12/02/23 9:20 AM) Social History Social History Type Response Smoking Status Never smoker entered on: 04/27/14 Sex EKG study * Event Display: ECG 12-Lead Authored Date: Please click on pdf link to open report * Event Display: ECG 12-Lead Authored Date: Ventricular Rate: 67 BPM Atrial Rate: 67 BPM P-R Interval: 144 ms QRS Duration: 68 ms Q-T Interval: 390 ms QTC Calculation(Bazett): 412 ms P Lissie: 11 degrees R Lissie: 48 degrees T Lissie: -5 degrees Normal sinus rhythm Nonspecific T wave abnormality Abnormal ECG When compared with ECG of 29-JAN-2022 05:01, No significant change was found Confirmed by TEX QUEVEDO ([id number]) on 12/02/2023 10:06:03 AM Brandon: TEX QUEVEDO Patient Care team information Care Team Personnel Name: Laxmi Sommer NP Position: Reference Physician Member Role: PCP Address: Address: [address] [place] [address]- Name: Esther Liu NP Position: S Associate Professional Member Role: Primary Care Nurse Care Team Related Persons Name: CANDY MAR Address: [address] Address: home [address] [place] [address] Name: CANDY MAR Address: [address] [address] Name: BART SOLORIO Address: home [address] [place] [address] Name: CLINTON FREITAS Address: home [place] [id number]
--- OUTSIDE RECORDS SUMMARY | 2024-03-22 18:18 | XMS_ITS | Continuity of Care Document ---
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 Start Date: 12/17/23 Status: Ordered omeprazole 20 mg oral enteric coated capsule 1 capsule = 20 mg, By Mouth, 2 times a day, # 60 capsule, 3 Refills, Maintenance, 12/17/23 15:18:00EDT, EC Capsule, [facility], Partial fill upon patient request if the prescription isfor a schedule II opioid drug., 158, cm, 12/17/23 1... Start Date: 12/17/23 Status: Ordered oxyCODONE 5 mg oral tablet 5 mg, 1, tablet, By Mouth, Every 6 hours, PRN, # 8 tablet, Refills 0, Tot. Refills 0, Maintenance, Pain , Moderate, 12/17/23 15:17:00 EDT, Route to Pharmacy Electronically, [facility], Partial fill upon patient request [...] brain 2023 06 Confirmed Active 1Normal MRV Vital Signs Most recent to oldest [Reference Range]: 1 2 3 Height 158 cm (12/17/23 3:54 PM) 158 cm (12/17/23 10:59 AM) 158 cm (12/17/23 7:24 AM) Weight 109.1 kg (12/16/23 7:06 PM) 109.4 kg (12/10/23 3:01 PM) Oxygen Saturation [94-100 %] 99 % (12/17/23 3:54 PM) 99 % (12/17/23 10:59 AM) 100 % (12/17/23 7:24 AM) Pulse Rate [55-90 bpm] 54 bpm *L* (12/17/23 3:54 PM) 66 bpm (12/17/23 10:59 AM) 66 bpm (12/17/23 7:24 AM) Body Mass Index [18.5-24.99 kg/m2] 43.7 kg/m2 *>HHI* (12/16/23 7:06 PM) 43.82 kg/m2 *>HHI* (12/10/23 3:01 PM) Blood Pressure [90-138/55-84 mm Hg] 126/81mm Hg (12/17/23 3:54 PM) 114/63mm Hg (12/17/23 10:59 AM) 118/56mm Hg (12/17/23 7:24 AM) Respiratory Rate [16-30 br/min] 18 br/min (12/17/23 3:54 PM) 18 br/min (12/17/23 10:59 AM) 18 br/min (12/17/23 7:24 AM) Temperature [96.8-100.4 DegF] 99.1 DegF (12/17/23 3:54 PM) 99.1 DegF (12/17/23 10:59 AM) 99.8 DegF (12/17/23 7:24 AM) Liters per Minute 6 L/min (12/16/23 2:45 PM) 6 L/min (12/16/23 2:30 PM) 6 L/min (12/16/23 2:15 PM) Mode of Delivery (Oxygen) Room air (12/17/23 3:54 PM) Room air (12/17/23 10:59 AM) Room air (12/17/23 7:24 AM) Blood pressure sites Arm, left (12/17/23 3:54 PM) Arm, left (12/17/23 10:59 AM) Arm, left (12/17/23 7:24 AM) Temperature Route Oral (12/17/23 3:54 PM) Oral (12/17/23 10:59 AM) Oral (12/17/23 7:24 AM) Dry Weight 109.1 kg (12/16/23 7:06 PM) 109.1 kg (12/16/23 11:12 AM) 109.4 kg (12/10/23 3:01 PM) Weight Obtained Via Patient/family state d (12/10/23 3:01 PM) Dry Weight Obtained Via Standing scale (12/16/23 11:12 AM) Patient/family stated (12/10/23 3:01 PM) Social History Social History Type Response Smoking Status Never smoker entered on: 04/27/14 Sex Hospital Progress note * Lawanda RODRIGUEZ, Sara: PERFORM, SIGN, VERIFY Event Display: Progress Note Hospital Authored Date: [id number] Patient: SOHA COLLINS Age: 28 years Sex: Female : 1995 Associated Diagnoses: None Author: Sara Webber RN Findings Problem Related to Alteration in Gastrointestinal : Alteration in Gastrointestinal Func/new 12/17/2023 7:43 EDT Alteration in GI status Related to Abdominal Surgery Goals & Outcomes, Gastrointestinal Establish a regular pattern of elimination for pt, Nutritional intake is adequate for metabolic needs, Pt will achieve normal/improved fluid balance, Pt will have a bowel movement prior to discharge, Pt will maintain adequate GI function appropriate for pt, Ptwill maintain normal elimination patterns, Pt will resume/maintain adequate hemodynamic status, Pt w ill experience progressive wound healing, Pt will not experience s/s of infection prior to discharge Interventions, Gastrointestinal Assess/monitor abdomen for distention, tenderness, Assess/monitor abdominal girth & bowel function, Assess/monitor bowel pattern, bowel sounds, flatus, Assess/monitor number of bowel movements, Assess/monitor color, quantity, quality, consistency of stoo, Assess/monitor pt for nausea, vomiting, Assess/monitor effects of re-hydration, Assess/monitor intake &output, Assess if pt tolerating diet, Teach/encourage deep breath & cough exercises, Teach/encourage use of incentive spirometer Goals/Interventions, Gastrointestinal Yes Gastrointestinal, Problem Start 12/16/2023 23:57 Reviewed plan with, Gastrointestinal Patient Patient Progression, Gastrointestinal Pt progressing according to plan . Evaluation Alert and oriented times 3. Pt up ad margaret and ambulated laps around the perimeter of the unit. Pt issteady on her feet pushing the iv pole. Abdominal lap sites with sterisrips and bandaids are clean dry and intact. C/o slight nausea this morning, No additional c/o nausea noted. Taking in protein drinks slowly. See [facility]IS for medication administered. Voids clear yellow urine in the hat in the toilet.Verbalized agreement with plan to discharge home. Discharge instructions reviewed with pt verbalzing understanding and acceptance of information. Pt aware to brass pickler scripts at the out patient pharmacy. PRN angio removed prior to discharge to home.. * Roger RODRIGUEZ, Felisa Tsang: SIGN, PERFORM, VERIFY Event Display: Progress Note Hospital Authored Date: Patient: SOHA COLLINS Age: 28 years Sex: Female : 1995 Associated Diagnoses: None Author: Roger RODRIGUEZ, Felisa Tsang Findings Problem Related to Alteration in Gastrointestinal : Alteration in Gastrointestinal Func/new 12/16/2023 23:00 EDT Alteration in GI status Related to Abdominal Surgery Goals & Outcomes, Gastrointestinal Establish a regular pattern of elimination for pt, Nutritional intake is adequate for metabolic needs, Pt will achieve normal/improved fluid balance, Pt will have a bowel movement prior to discharge, Pt will maintain adequate GI function appropriate for pt, Ptwill maintain normal elimination patterns, Pt will resume/maintain adequate hemodynamic status, Pt w ill experience progressive wound healing, Pt will not experience s/s of infection prior to discharge Interventions, Gastrointestinal Assess/monitor abdomen for distention, tenderness, Assess/monitor abdominal girth & bowel function, Assess/monitor bowel pattern, bowel sounds, flatus, Assess/monitor number of bowel movements, Assess/monitor color, quantity, quality, consistency of stoo, Assess/monitor pt for nausea, vomiting, Assess/monitor effects of re-hydration, Assess/monitor intake &output, Assess if pt tolerating diet, DVT prophylaxis as ordered, Teach/encourage deep breath &cough exercises, Teach/encourage use of incentive spirometer, Incision care as ordered, Teach pt tosplint incision when coughing . Nursing Data Gastrointestinal Data. : Gastrointestinal Data. 12/16/2023 21:00 EDT Gastrointestinal Symptoms Nausea Abdomen Soft, Tender, Distended Bowel Sounds LUQ Hypoactive Bowel Sounds RUQ Hypoactive Bowel Sounds LLQ Hypoactive Bowel Sounds RLQ Hypoactive Last Bowel Movement 12/15/2023 GI WNL except . Vital Signs : VITAL SIGNS SECTION 12/16/2023 23:24 EDT Temperature 98.4 DegF Temperature Route Oral Pulse Rate 80 bpm Respiratory Rate 18 br/min Systolic Blood Pressure 103 mm Hg Diastolic Blood Pressure 57 mm Hg Blood pressure sites Arm, left Mean Arterial Pressure 72 mm Hg Pulse Pressure 46 mm Hg Oxygen Saturation 100 % . Narrative/Incidental Pt is alert and oriented x 3. Lungs are CTA, On RA. Encouraged to do IS, able to achieve 1000cc. Ptendorses that she does not have PMH of SOREN and dose not use CPAP at home. Hence CPAP was discontinued. Pedal pulses are palpable, no edema noted. SCD applied. Ambulates OOB in the hallway with standby assist. Voids concentrated yellow urine. Fall preventive measures are implemented. Plan of care explained to the pt and agreed. . Evaluation P : Alteration in gastrointestinal function I : See interventions listed in care plan above. E: Pt reported 8/10 pain, medicated with IV Toradol with good effect. Abdomen is soft, mildly distended, round and TTP mid upper abdomen, bowel sounds are hypoactive. Pt reported nausea, medicated with IV Zofran and Benadryl with good effect. Denies vomiting, belching or flatus.Tolerates sips of water. IVF administered as per the order. Lap sites x 5 with Band Aids are CDI. Progressing along planof care. . * Grace Comer RN: PERFORM, SIGN, VERIFY Event Display: Progress Note Hospital Authored Date: Patient: SOHA COLLINS Age: 28 years Sex: Female : 1995 Associated Diagnoses: None Author: Grace Comer RN Findings Narrative/Incidental Admitted a 28 y/o female s/p gastric sleeve oriented to room set up and call zaldivar use awake alert oriented x 3 states pain level 0-9/10 bm 12/15/[address] instructed incentive spirometer use states no urge to urinate at this time Skin assessment performed with MICHAEL wheeler skin is intact except for 5 lap sites in the abdomen with bandaid will cont to monitor for safety and discomfort Note * Edilma Peguero: PERFORM Event Display: Discharge/Transfer Note Hospital Authored Date: Patient: ??SOHA COLLINS ? Age:??28 Years?Sex:??Female?:??1995?? Admit Date Admission Date: 12/16/2023 Discharge Date 12/17/2023 Discharge Diagnoses Severe obesity, 12/17/2023 Hospital Course Patient is a 28 year old morbidly obsese Female and now??s/p laparoscopic sleeve gastrectomy with Dr. Mckenzie on??12/16/23.?? Post-operatively did well and followed the post-op bariatric protocol.? The patient was started on a stage 1 diet and then advanced to stage 2 as tolerated. Seen by the Fairground Operator for reinforcement of new diet instructions. Patient was on DVT prophylaxis that included LMWH bid and SCDs. GI prophylaxis included Protonix.? Upon discharge the patient was tolerating the stage 2 diet, pain controlled on PO medications, ambulating and voiding with no difficulty. Patient was clinically stable and discharged in good condition.?? Objective/Physical Exam on Day of Discharge Vitals & Measurements T:??99.1?F?? HR:??66??(Peripheral)?? RR:??18?? BP:??114/63?? SpO2:??99%?? HT:??158??cm?? WT:??109.1??kg?? BMI:??43.7? General - NAD, alert and awake Cardiac - RRR Respiratory -?? non labored?? Abdomen - soft, obese, tenderness yoselyn-incisions with band-aids c/d/i over lap port sites Neuro - alert and oriented x3 ? Future Appointments Thursday 9:10 AM EDT ?? With: Feli Mckenzie MD Where: [facility] [address] [place] [address] Drive [address] [place] [address]- Status: Pending Thursday 8:30 AM EDT ?? With: Edelmira Angulo RD Where: [facility] [address] [place] [address] Drive [address] [place] [address]- Status: Pending Patient Discharge Condition Good Discharge Disposition Home Procedures Performed This Visit Gastrectomy Sleeve Laparoscopic Result type: Operative Note Result date: December 16, 2023 14:00 EDT Result status: Modified Result title: Op Note Performed by: Camilo Wynne MD on December 16, 2023 14:04 EDT Verified by: Camilo Wynne MD on December 16, 2023 14:04 EDT Encounter info: [id number], [facility], Inpatient, 12/16/2023 - ?? Document Contains Addenda Addendum by Feli Mckenzie MD on December 16, 2023 14:14:36 EDT (Verified) Attending Attestation I was present and scrubbed for the entirety of the procedure, and agree with the details as described in the resident note, with the following additions/corrections: hemostasis at the inferiormost staple line achieved with Sonicision and Surgicel. ?? Patient: ??SOHA COLLINS ? Age:??28 Years?Sex:??Female?:??1995?? Indication for Surgery 28F who underwent bariatric surgery protocol and presents for elective surgery. Preoperative Diagnosis Morbid Obesity Postoperative Diagnosis Same as as preoperative diagnosis Operation Gastrectomy Sleeve Laparoscopic Surgeon(s) Feli Mckenzie MD (Primary Surgeon) Precision Dyer Camilo Wynne MD ([id number]) Anesthesia General Anesthesia Cristiane MOSS, Yuan Pederson (Att Anesthesiologist) Gabriel Norwood MD (Att Anesthesiologist) Estimated Blood Loss <5 Specimen(s) Partial Gastrectomy Complications None Discharge Medications Acetaminophen (acetaminophen 325 mg oral tablet)?975?Milligram?By Mouth?Every 6 hours Docusate (Colace sodium 100 mg oral capsule)?100?Milligram?1?capsule?By Mouth?2 times a day?as needed?for constipation Omeprazole (omeprazole 20 mg oral enteric coated capsule)?1?capsule?20?Milligram?By Mouth?2 times a day Oxycodone (oxyCODONE 5 mg oral tablet)?5?Milligram?1?tablet?By Mouth?Every 6 hours?as needed?Pain , Moderate Remove Patch (Remove ??Patch)?1?Each?Topically?Every 72 hours Scopolamine?1?Milligram?Topically?Every 72 hours Labs Last 24 Hours No qualifying data available. Follow-Up Appointments Added Follow Up ?Time Frame ?Comments Magaly MOSS, Feli?1 to 2 weeks?Please call to make an appointment Patient Instructions Discharge Instructions: Bariatric Surgery ?? [facility] Jonh Han M.D. Connor Landaverde M.D. Feli Mckenzie M.D.? YOUR ONE WEEK FOLLOW-UP NURSE VISIT:?Keep appt scheduled YOUR 2-WEEK POST-OP SURGEON APPT.:?Keep appt scheduled ? ONCE YOU RETURN HOME AFTER YOUR SURGERY? Diet: 1.??Be sure to follow the post-op diet the manufacture specialist has prescribed for you, to the letter. ??Ifyou have misplaced your?Dietary Guidelines?booklet (from Nutrition), request a copy of it before you leave the hospital. 2.??It is absolutely crucial that you do not stray from your diet, not even a little bit, especially in the liquid phase. ??Cheating with even a little bite of solid food during this time can not only make you feel ill, but could actually cause an infection or ulceration of your internal incisions.??The same goes for drinking alcohol or smoking cigarettes. 3.??Drink ALL of the protein you are recommended daily, and ALL of the fluids you are allowed to drink daily. ??This may be a challenge- remember to go slowly. ??If you are having more than a little difficulty, call your manufacture specialist. 4.??Drinking/eating too much or too quickly, and eating or drinking sugary foods can now cause you to have?dumping syndrome?? , signs of which can be nausea, vomiting, diarrhea, abdominal cramping, rapid pulse, flushing, sweating and the shakes. ??This can be largely avoided by following all ofyour manufacture specialist???s post op diet recommendations, and if it does happen to you, you can get some r elief by lying down for at least 30 minutes. ? Activity: ?? 1.??Avoid any activity that causes discomfort. ??Normal daily activities are safe. ??Take time to rest frequently throughout the day. ??Though you may look fine on the outside, you still had major surgery, and it takes several weeks to a few months to feel normal again, depending on your body???s own unique response to surgery. 2.??Avoid straining, vigorous sports or lifting anything more than 5-10 pounds for 4 weeks, or as directed by your surgeon. 3.??After your first day home, you may drive whenever comfortable, but do not go alone the first time and do not drive after taking pain medications. 4.??You may usually return to work between 4 to 8 weeks, depending on what you do for a living, andas long as you are feeling up to it. 5.??Get up from seated or lying positions slowly and change positions carefully. ??If you have to cough or sneeze (and have enough warning time) hold a pillow firmly to your most tender incision areas while you are doing this. ?? Dressings and Wound care: 1.?You may remove your bandages or bandaids (if you have one in place) starting 48 hours after the surgery, and shower (but no soaking in a tub, pool, or hot tub.) ??If you have steri-strips (little white strips of tape), espinoza, or?glue?holding your incision, it???s okay if the area happens to get wet, but be sure to pat dry with a clean towel as soon as you get out. ?? 2.?It is very important to keep your incision area clean and dry. ??You may apply fresh bandaidsto your incision areas if you are having any oozing, or for your own comfort, but try to leave the areas uncovered as soon as you can, and whenever you can. Do not apply any ointment or lotion to your incisions while they are still healing (unless one was prescribed by your surgeon.)?? 3.?If you have espinoza, these will be removed about a week after your surgery by the nurse, at your one week follow up visit. ??Steri-strips will start curling up and drying out over several days.??They may start to drop off by themselves, and this is all right. ??Glue will dissolve by itself over several days to a few weeks. ?? Medications: 1.?Pain: ??You will be given a prescription for pain at the time of discharge, usually??Oxycodone.??Follow the instructions for taking these medications. ??If the pain you are experiencing is mild, extra-strength Tylenol products [id number] will likely take care of it. ? 2.?Stool softener: ??The effects of anesthesia, narcotic pain medication, low activity levels, and the liquid diet can all combine to cause constipation. ??You will be prescribed??Colace 100 mg orits generic form??DOCUSATE tablet by mouth twice a day as directed. This should be taken until you no longer need the narcotic pain pills, and until you have resumed regular bowel movements. If you have chronic diarrhea or inflammatory bowel disease, you should not take stool softener unless you are constipated. ?? 3.?Proton Pump Inhibitor (PPI): ??You will be prescribed a PPI when you leave the hospital, usually Prilosec (the generic form is Omeprazole) 20 mg tablets or capsules, to be taken twice daily. ??You will need to take these long-term, usually for at least one year, often for several years, and sometimes for the rest of your life. ??This type of medication helps reduce the amount of stomach acid you produce, to help protect your new, smaller stomach from damage. ?? 4.?Home Medications: The doctor who discharges you will tell you which medications to resume. ??Once you get home, you will need to contact your primary care physician and other prescribers to letthem know of any changes in your medications or dosages. ? 5.?Special Medication Considerations: ??DIABETIC PATIENTS: ??Be sure to check your blood sugar even more often than normal in the first weeks following your surgery, and be alert for dizziness, sweating, paleness, shakiness, or other symptoms of low blood sugar (which you would treat immediatelyas you normally would, and call your physician or seek emergency medical treatment if necessary.) ??With rapid weight loss and the dietary changes, it may be necessary for your doctor to reduce, change, or discontinue your diabetic medications, even in the first week post-op. ??PATIENTS WITH HIGH BLOOD PRESSURE: ??Be especially sure to notify your prescribing physician of your surgery and the dosage of medication you were sent home on, whether or not it has changed. Be alert for attacks of dizziness or sudden weakness and fatigue: ??If this is happening, do not take your medication, and call your prescribing doctor immediately. ??If the dizziness is accompanied by shortness of breath, severe headache, chest pain, or any other life-threatening symptoms, seek emergency medical treatment. ?? 6.?Antibiotics: If one is prescribed for you at discharge, be sure to take it until there are nomore pills left.? You may experience the following: ?? 1.??Some oozing of blood to the bandage in the first 24 hours. 2.??Fatigue, especially in the first 24 hours. 3.??Nausea or vomiting can occur in the first 24 hours following any surgery, and should be resolved by the time you are discharged home. ??If it starts up (or comes back) after you???ve returned home, take nothing by mouth for 2 hours, then try sips of water, and if this goes well, sips of proteinshake. ??If still having trouble, call us. 4.??Pain or discomfort, which will lessen as time passes. ??Since your surgery was done laparoscopically, you could have abdominal, shoulder, or collarbone pains. ??These will disappear gradually over several days. ??Frequent walking helps. 5.??Constipation is a possibility, especially if narcotic pain relievers are needed. ??Take your stool softener as directed. ??Daily exercise (walking) and staying hydrated are also helpful. It may take several days to a week after your surgery to resume having bowel movements. ??If you become uncomfortable after 3 to 4 days, or if you have not had a bowel movement after 6 days, continue to take your stool softeners, and add your [id number]-oie-[id number] laxative of choice. ??A good option is Miralax, or its generic equivalent, a tasteless fine powder which can be added to water, juice, or your protein shake nightly. ? Call the office or answering service immediately if any of the following occur: ?? 1.??Severe pain not relieved by pain medication. 2.??Uncontrollable bleeding/ bleeding that saturates your dressing. 3.??Any bright redness, red streaking, or swelling around your incision, or any bad odor, or pus-like drainage coming from an incision. 4.??Temperature more than??101 F (38 C). 5.??Repeated nausea and vomiting or inability to tolerate or hold down fluids. ?? 6.??Constipation accompanied by nausea, inability to pass gas, or a hard, swollen belly. 7.??Inability to urinate. ?? Problems or Questions: ?? You can call the answering service at . ?? 1.??If you cannot reach our office and your problem truly requires emergency attention, go to??[facility] Emergency Room??or the nearest emergency room. * Sara Webber RN: PERFORM Event Display: Patient Education/Instruction Authored Date: [id number] Inpatient Adult Discharge Instructions. [place] [id number] Name: SOHA COLLINS : 1995?? Visit: 12/16/2023 10:45?? Current Date: 12/17/2023 17:45 ?? Account: [id number]?? Inpatient Adult Discharge Instructions We would like to thank you for allowing us to assist you with your healthcare needs. The following includes patient education materials and information regarding your injury/illness. Our entire staffstrives to provide an excellent experience for our patients and their families. PLEASE ENSURE YOU FOLLOW-UP PER THE INSTRUCTIONS BELOW! ?? YOUR OPINION IS IMPORTANT TO US! Please complete the survey you may receive by mail or email. Your feedback will be used to make improvements to the healthcare experiences of our patients and their families. Surveys are administered by [email or web address] ?? If further treatment with your primary care physician or another doctor is recommended, it is important for you to keep the appointment. Call your primary care physician or return to the Emergency Department immediately if your condition worsens, fails to improve, or new symptoms develop. If you need to find a doctor, you can call [facility] [employer] for a referral at [phone] or toll free at [phone]) or log in to [email or web address] ?? [facility], in keeping with [facility] guidance, no longer requires face masks for staff, patientsor visitors in most situations. Similiar to time spent indoors at other locations, there is the chance that you were exposed to repiratory viruses during your time with us (such as flu or COVID-19). If you develop symptoms concerning for a viral respiratory infection, please seek testing (and treatment if indicated) from your medical provider or home test kit. ?? You can view and manage your care through the patient portal or by using a health care danette of your choosing. [employer] is a website that allows you to securely view your medical information including your hospital discharge summary, office visit summaries, medications and follow-up visits. You can also request appointments, renew medications, and request access to your medical information using a health care danette of your choosing, or just ask a question. You can enroll at [email or web address] or register during your next office visit. You have been discharged from [facility], Patient Care Unit: SW6??. If you have any questions regarding these instructions, including results of studies pending, afteryou leave, please call us and we will be happy to assist you 19/01. [facility] Your Care Team Attending Physician Feli Mckenzie MD?? Consulting Providers Feli Mckenzie MD?? Discharging Providers Edilma Peguero Your Diagnosis Severe obesity Tests Performed Below is a partial list of the tests performed during your hospitalization. You may have had other tests and procedures not included in this list. Please discuss all test results with your provider. Test Urine?-- Results Pending -- Type and Screen You will be contacted within 72 hours with your results. CBC?? HCG Urine ( Test Urine)?? Pathology Tissue Request ()?? Primary Care Provider Ros HYMAN, Laxmi Vazquez? Advance Directive Health Care Proxy on File No Patient refuses to discuss Name of Caregiver: candy mar Patient has a Designated Caregiver: Yes Discharge Vitals Temperature: 99.1 DegF Height: 158 cm Pulse Rate:??54 bpm??Low Weight: 109.1 kg Respiratory Rate: 18 br/min Body Mass Index:??43.7 kg/m2??Critical Systolic Blood Pressure: 126 mm Hg Body surface area: 2.19 Diastolic Blood Pressure: 81 mm Hg ?? Oxygen Saturation: 99 % ?? Studies Pending All studies ordered during this hospital stay have been completed unless listed below. Please discuss all pending results with your provider listed above in these instructions. ?? CBC?? HCG Urine ( Test Urine)?? Pathology Tissue Request ()?? What to do next Instructions From Your Doctor Discharge Instructions: Bariatric Surgery ?? [facility] General Surgery Jonh Han M.D. Connor Landaverde M.D. Feli Mckenzie M.D.? YOUR ONE WEEK FOLLOW-UP NURSE VISIT:?Keep appt scheduled YOUR 2-WEEK POST-OP SURGEON APPT.:?Keep appt scheduled ? ONCE YOU RETURN HOME AFTER YOUR SURGERY? Diet: 1.??Be sure to follow the post-op diet the manufacture specialist has prescribed for you, to the letter. ??Ifyou have misplaced your?Dietary Guidelines?booklet (from Nutrition), request a copy of it before you leave the hospital. 2.??It is absolutely crucial that you do not stray from your diet, not even a little bit, especially in the liquid phase. ??Cheating with even a little bite of solid food during this time can not only make you feel ill, but could actually cause an infection or ulceration of your internal incisions.??The same goes for drinking alcohol or smoking cigarettes. 3.??Drink ALL of the protein you are recommended daily, and ALL of the fluids you are allowed to drink daily. ??This may be a challenge- remember to go slowly. ??If you are having more than a little difficulty, call your manufacture specialist. 4.??Drinking/eating too much or too quickly, and eating or drinking sugary foods can now cause you to have?dumping syndrome?? , signs of which can be nausea, vomiting, diarrhea, abdominal cramping, rapid pulse, flushing, sweating and the shakes. ??This can be largely avoided by following all ofyour manufacture specialist???s post op diet recommendations, and if it does happen to you, you can get some r elief by lying down for at least 30 minutes. ? Activity: ?? 1.??Avoid any activity that causes discomfort. ??Normal daily activities are safe. ??Take time to rest frequently throughout the day. ??Though you may look fine on the outside, you still had major surgery, and it takes several weeks to a few months to feel normal again, depending on your body???s own unique response to surgery. 2.??Avoid straining, vigorous sports or lifting anything more than 5-10 pounds for 4 weeks, or as directed by your surgeon. 3.??After your first day home, you may drive whenever comfortable, but do not go alone the first time and do not drive after taking pain medications. 4.??You may usually return to work between 4 to 8 weeks, depending on what you do for a living, andas long as you are feeling up to it. 5.??Get up from seated or lying positions slowly and change positions carefully. ??If you have to cough or sneeze (and have enough warning time) hold a pillow firmly to your most tender incision areas while you are doing this. ?? Dressings and Wound care: 1.?You may remove your bandages or bandaids (if you have one in place) starting 48 hours after the surgery, and shower (but no soaking in a tub, pool, or hot tub.) ??If you have steri-strips (little white strips of tape), espinoza, or?glue?holding your incision, it???s okay if the area happens to get wet, but be sure to pat dry with a clean towel as soon as you get out. ?? 2.?It is very important to keep your incision area clean and dry. ??You may apply fresh bandaidsto your incision areas if you are having any oozing, or for your own comfort, but try to leave the areas uncovered as soon as you can, and whenever you can. Do not apply any ointment or lotion to your incisions while they are still healing (unless one was prescribed by your surgeon.)?? 3.?If you have espinoza, these will be removed about a week after your surgery by the nurse, at your one week follow up visit. ??Steri-strips will start curling up and drying out over several days.??They may start to drop off by themselves, and this is all right. ??Glue will dissolve by itself over several days to a few weeks. ?? Medications: 1.?Pain: ??You will be given a prescription for pain at the time of discharge, usually??Oxycodone.??Follow the instructions for taking these medications. ??If the pain you are experiencing is mild, extra-strength Tylenol products [id number] will likely take care of it. ? 2.?Stool softener: ??The effects of anesthesia, narcotic pain medication, low activity levels, and the liquid diet can all combine to cause constipation. ??You will be prescribed??Colace 100 mg orits generic form??DOCUSATE tablet by mouth twice a day as directed. This should be taken until you no longer need the narcotic pain pills, and until you have resumed regular bowel movements. If you have chronic diarrhea or inflammatory bowel disease, you should not take stool softener unless you are constipated. ?? 3.?Proton Pump Inhibitor (PPI): ??You will be prescribed a PPI when you leave the hospital, usually Prilosec (the generic form is Omeprazole) 20 mg tablets or capsules, to be taken twice daily. ??You will need to take these long-term, usually for at least one year, often for several years, and sometimes for the rest of your life. ??This type of medication helps reduce the amount of stomach acid you produce, to help protect your new, smaller stomach from damage. ?? 4.?Home Medications: The doctor who discharges you will tell you which medications to resume. ??Once you get home, you will need to contact your primary care physician and other prescribers to letthem know of any changes in your medications or dosages. ? 5.?Special Medication Considerations: ??DIABETIC PATIENTS: ??Be sure to check your blood sugar even more often than normal in the first weeks following your surgery, and be alert for dizziness, sweating, paleness, shakiness, or other symptoms of low blood sugar (which you would treat immediatelyas you normally would, and call your physician or seek emergency medical treatment if necessary.) ??With rapid weight loss and the dietary changes, it may be necessary for your doctor to reduce, change, or discontinue your diabetic medications, even in the first week post-op. ??PATIENTS WITH HIGH BLOOD PRESSURE: ??Be especially sure to notify your prescribing physician of your surgery and the dosage of medication you were sent home on, whether or not it has changed. Be alert for attacks of dizziness or sudden weakness and fatigue: ??If this is happening, do not take your medication, and call your prescribing doctor immediately. ??If the dizziness is accompanied by shortness of breath, severe headache, chest pain, or any other life-threatening symptoms, seek emergency medical treatment. ?? 6.?Antibiotics: If one is prescribed for you at discharge, be sure to take it until there are nomore pills left.? You may experience the following: ?? 1.??Some oozing of blood to the bandage in the first 24 hours. 2.??Fatigue, especially in the first 24 hours. 3.??Nausea or vomiting can occur in the first 24 hours following any surgery, and should be resolved by the time you are discharged home. ??If it starts up (or comes back) after you???ve returned home, take nothing by mouth for 2 hours, then try sips of water, and if this goes well, sips of proteinshake. ??If still having trouble, call us. 4.??Pain or discomfort, which will lessen as time passes. ??Since your surgery was done laparoscopically, you could have abdominal, shoulder, or collarbone pains. ??These will disappear gradually over several days. ??Frequent walking helps. 5.??Constipation is a possibility, especially if narcotic pain relievers are needed. ??Take your stool softener as directed. ??Daily exercise (walking) and staying hydrated are also helpful. It may take several days to a week after your surgery to resume having bowel movements. ??If you become uncomfortable after 3 to 4 days, or if you have not had a bowel movement after 6 days, continue to take your stool softeners, and add your [id number] laxative of choice. ??A good option is Miralax, or its generic equivalent, a tasteless fine powder which can be added to water, juice, or your protein shake nightly. ? Call the office or answering service immediately if any of the following occur: ?? 1.??Severe pain not relieved by pain medication. 2.??Uncontrollable bleeding/ bleeding that saturates your dressing. 3.??Any bright redness, red streaking, or swelling around your incision, or any bad odor, or pus-like drainage coming from an incision. 4.??Temperature more than??101 F (38 C). 5.??Repeated nausea and vomiting or inability to tolerate or hold down fluids. ?? 6.??Constipation accompanied by nausea, inability to pass gas, or a hard, swollen belly. 7.??Inability to urinate. ?? Problems or Questions: ?? You can call the answering service at . ?? 1.??If you cannot reach our office and your problem truly requires emergency attention, go to??[facility] Emergency Room??or the nearest emergency room. ?? Orders? 12/17/23 15:25:00 EDT?? Prescriptions??, ??12/17/23 15:25:00 EDT?? Scheduled Follow-Up Appointments Thursday 9:10 AM EDT ?? With: Feli Mckenzie MD Where: [facility] [address] [place] [address] Drive [address] [place] [address]- Status: Pending Thursday 8:30 AM EDT ?? With: Edelmira nAgulo RD Where: [facility] [address] [place] [address] Drive [address] [place] [address]- Status: Pending You Need to Schedule the Following Appointments Follow Up with??Feli Mckenzie MD When:??Within 1 to 2 weeks Why: Please call to make an appointment Where: [address] [place] [address] [place] [address]- Discharge Medications KARINA MICHAELROXANNE :1995 Visit Date:12/16/2023 Medications: Please continue your medications until treatment is completed or stopped by your provider. Medications not listed below should be discontinued. Discuss any questions related to medications with your provider. What How Much When Instructions Next Dose New Acetaminophen (acetaminophen 325 mg oral tablet) 975 Milligram Oral Every 6 hours 9pm 12/16 New Docusate (Colace sodium 100 mg oral capsule) 1 capsule Oral Twice a day as needed for for constipation Pickup at [facility] 3 8pm 12/16.?? hold for loose stools New Omeprazole (omeprazole 20 mg oral enteric coated capsule) 1 capsule Oral Twice a day Refills: 3 Pickup at [facility] 3 8pm 12/16 New Oxycodone (oxyCODONE 5 mg oral tablet) 1 tab(s) Oral Every 6 hours as needed for Pain , Moderate Pickup at [facility] 3 every 6 hours as needed for pain New Remove Patch (Remove Patch) 1 Each Topically Every 72 hours New Scopolamine 1 Milligram Topically Every 72 hours remove patch behind left ear 12/17 Pharmacy Information [facility] 3: [address] [place], [place] [id number] [phone] Prescription Given During Visit Docusate (Colace sodium 100 mg oral capsule) - 1 capsule = 100 mg, By Mouth, 2 times a day, # 20 capsule, 0 Refills, [facility], [address] [place] [phone]?? Omeprazole (omeprazole 20 mg oral enteric coated capsule) - 1 capsule = 20 mg, By Mouth, 2 times a day, # 60 capsule, 3 Refills, [facility], [address] [place] [phone]?? Oxycodone (oxyCODONE 5 mg oral tablet) - 1 tablet = 5 mg, By Mouth, Every 6 hours, # 8 tablet, 0 Refills, [facility], [address] [place] [id number]?? Laboratory Results Below is a partial list of the most recent Laboratory test results done prior to this discharge. You may have had other tests and procedures not included in this list. Please discuss all test resultswith your provider. Type and Screen (12/16/2023) ???Blood Type - O Positive???Antibody Screen - Negative Allergies (NKA means No Known Allergies) NKA Problems Active Problems??(10) Binge eating disorder, in partial remission?? Decreased visual acuity?? cardiac echogenic focus, antepartum?? History of hemorrhage?? Maternal varicella, non-immune?? Obesity, morbid, BMI 40.0-49.9? Rectal bleeding?? Severe obesity?? White matter disease, unspecified MRI brain 2023?? Education Materials Below is the list of Educational Leaflet Providered with your Discharge Instructions. Valuables and Belongings I fully understand and agree that [facility] accepts no responsibility for all my personal property including clothing, toilet articles, radios, jewelry, dentures, hearing aids, rings, money, or any other property that is in my possession or is brought to me after admission. I understand certain valuables may be placed in a hospital safe for a short period of time. I understand that the hospital is not liable for loss or damage due to accident, fire, or other natural occurrence while said property is in the safe. I accept full responsibility for any personal property that I keep with me, and will not hold the hospital responsible in case of loss or disappearance. I acknowledge that i have been encouraged to send valuables and belongings home. ?? Review of Valuable and Belonging List: With patient Date for Pt to Sign Valuables/Belongings: 12/16/23 19:10:00 ?? Other Discharge Information ? Pulmonary Rehab Status?? Pulmonary Rehab Discharge Status?? CPAP/BiPAP Mask Type: Full CPAP/BiPAP Mask Size: Medium Respiratory Rate: 18 br/min ? Common Emergency Awareness Tips IS IT A STROKE? Act FAST and Check for these signs: FACE Does the face look uneven? ARM Does one arm drift down? SPEECH Does their speech sound strange? TIME Call at any sign of stroke ?? Heart Attack Signs Chest discomfort: Most heart attacks involve discomfort in the center of the chest and lasts more than a few minutes, or goes away and comes back. It can feel like uncomfortable pressure, squeezing, fullness or pain. Discomfort in upper body: Symptoms can include pain or discomfort in one or both arms, back, neck, jaw or stomach. Shortness of breath: With or without discomfort. Other signs: Breaking out in a cold sweat, nausea, or lightheaded. Remember, MINUTES DO MATTER. If you experience any of these heart attack warning signs, call to get immediate medical attention! ?? Smoking can increase your chances of developing chronic health problems and can cause harmful effects to other family members in your house. If you smoke, you are strongly encouraged to quit. Please call [facility] [employer] at [phone] or [phone] ([phone]) or log in to [email or web address] for referrals to smoking cessation programs. ?? 816 Suicide & Crisis Lifeline is available 19/01 if you or someone you know needs to find a reason to keep living. By calling 478 you'll be connected to a skilled, trained counselor at a crisis center in your area. INPATIENT DISCHARGE INSTRUCTIONS SIGNATURE PAGE KARINA SOHA Location:[facility] Registration Date and Time:12/16/2023 10:45 EDT Primary Care Physician: Ros HYMAN, Laxmi Vazquez, Attending Physician: Feli Mckenzie MD, SOHA HERRON, have received the above patient education materials/instructions and have verbalized understanding. If ambulance or transport services are being used I further acknowledge being given a choice of service. ?? If you need to contact me, please call me at this number: . Patient/Medical Screener Name: Patient/Medical Screener Signature: Relationship to Patient: Witness Name/Signature: Date: Patient Care team information Care Team Personnel Name: Felisa Duran RN Position: S RN Member Role: Primary Care Nurse Name: Laxmi Sommer NP Position: Reference Physician Member Role: PCP Address: Address: [address] [place] [id number] Name: Nhung Mcfadden RN Position: S RN Member Role: Primary Care Nurse Name: Esther Liu NP Position: S Associate Professional Member Role: Primary Care Nurse Care Team Related Persons Name: CANDY MAR Address: [address] Address: home [address] [place] [address] Name: CANDY MAR Address: home [address] [address] Name: BART SOLORIO Address: home [address] [place] [address] Name: CLINTON FREITAS Address: home [place] [address]
--- OUTSIDE RECORDS SUMMARY | 2024-03-22 18:18 | XMS_ITS | Continuity of Care Document ---
Author Organization [facility] Address [address] [place] [address]- Care Team Providers Care Pot Runner Name Role Phone Ros HYMAN, Laxmi Vazquez Primary Care Physicia n Encounter [facility] R [id number] Date(s): 09/16/23 - 10/16/23 [facility] [address] [place] [address]- Attending Physician: Judith Grubbs Admitting Physician: Judith Grubbs Referring Physician: Judith Grubbs Allergies, Adverse Reactions, Alerts No Known Allergies [...] Stop Date: 09/10/24 Status: Ordered NuLYTELY Lemon [place] oral powder for reconstitution See Instructions, as [...] Reference Physician Member Role: PCP Address: Address: [address] [place] [id number] Name: Esther Liu NP Position: [facility] Associate Professional Member Role: Primary Care Nurse Care Team Related Persons Name: CANDY MAR Address: home [address] [address] Name: CANDY MAR Address: [address] Address: home [address] [place] [address] Name: BART SOLORIO Address: home [address] [place] [address] Name: CLINTON FREITAS Address: home [place] [id number]
--- OUTSIDE RECORDS SUMMARY | 2024-03-22 18:18 | XMS_ITS | Continuity of Care Document ---
Author Organization [facility] Address [address] [place] [address]- Care Team Providers Care Carbonation Equipment Operator Name Role Phone Ros HYMAN, Laxmi Vazquez Primary Care Physicia n [place] [facility] Date(s): 09/16/23 - 12/11/[address] [address]- Attending Physician: Rafal Trinidad MD Admitting Physician: Rafal Trinidad MD Allergies, Adverse Reactions, Alerts No Known [...] Stop Date: 09/10/24 Status: Ordered NuLYTELY Lemon [place] oral powder for reconstitution See Instructions, as [...] Reference Physician Member Role: PCP Address: Address: [address] [place] [address]- Name: Eshter Liu NP Position: [facility] Associate Professional Member Role: Primary Care Nurse Care Team Related Persons Name: CANDY MAR Address: [address] Address: home [address] [place] [address] Name: CANDY MAR Address: home [address] [facility] [address] [place] [address] Name: BART SOLORIO Address: home [address] [place] [address] Name: CLINTON FREITAS Address: home [place] [id number]
--- OUTSIDE RECORDS SUMMARY | 2024-03-22 18:18 | XMS_ITS | Continuity of Care Document ---
Author Organization [facility] Address [address] [place] [address] Dr [address] [place] [address]- Care Team Providers Care Emotional Support Teacher Name Role Phone Ros HYMAN, Laxmi Vazquez Primary Care Physicia n Encounter [facility] Date(s): 07/27/23 - 08/03/23 [facility] [address] [place] [address]- Encounter Diagnosis Morbid obesity with BMI of 40.0-44.9, adult(Discharge Diagnosis) - 07/23/23 Attending Physician: Feli Mckenzie MD Referring Physician: Harinder Bautista Allergies, Adverse Reactions, Alerts No Known Allergies [...] Maintenance, 01/29/22 10:22:00 EDT, DIS Tablet, [id number], Partial fill upon patient request if the [...] with BMI of 40.0-44.9, adult Discharge Diagnosis 07/23/23 Vital Signs Most recent to oldest [Reference Range]: 1 Height 158 cm (07/27/23 1:31 PM) Weight 111.3 kg (07/27/23 1:31 PM) Pulse Rate [55-90 bpm] 73 bpm (07/27/23 1:31 PM) Body Mass Index [18.5-24.99 kg/m2] 44.58 kg/m2 *>HHI* (07/27/23 1:31 PM) Blood Pressure [90-138/55-84 mm Hg] 125/ 85mm Hg (07/27/23 1:31 PM) Respiratory Rate [16-30 br/min] 18 br/mi n (07/27/23 1:31 PM) Temperature [96.8-100.4 DegF] 97.9 DegF (07/27/23 1:31 PM) Blood pressure sites Arm, right (07/27/23 1:31 PM) Temperature Route Temporal (07/27/23 1:31 PM) Weight Obtained Via Standing scale (07/27/23 1:31 PM) Social History Social History Type Response Smoking Status Never smoker entered on: 04/27/14 Sex Patient Care team information Care Team Personnel Name: Laxmi Sommer NP Position: Reference Physician Member Role: PCP Address: Address: [address] [place] [address]- Name: Esther Liu NP Position[facility] Associate Professional Member Role: Primary Care Nurse Care Team Related Persons Name: CANDY MAR Address: Address: home [address] [place] [address] [place] Name: CANDY MAR Address: home [address] [address] Name: BART SOLORIO Address: home [address] [place] [address] Name: CLINTON FREITAS Address: home [place] [id number]
--- OUTSIDE RECORDS SUMMARY | 2024-03-22 18:18 | XMS_ITS | Continuity of Care Document ---
Author Organization [facility] Address [address] [place] [address] Dr ve [address] [place] [address]- Care Team Providers Care Fireworks Assembly Supervisor Name Role Phone Ros HYMAN, Laxmi Vazquez Primary Care Physicia n Encounter [facility] Date(s): 02/02/24 - 03/03/[address] [place], [place] [address] Attending Physician: Judith Grubbs Admitting Physician: AdmtrJudith Referring Physician: AdmtrJudith Allergies, Adverse Reactions, Alerts No Known Allergies [...] 12/17/23 15:18:00 EDT, Route to Pharmacy Electronically, [facility], Partial fill upon patient request [...] 3 Refills, Maintenance, 12/17/23 15:18:00EDT, EC Capsule, [facility], Partial fill upon patient request if the prescription isfor a schedule II opioid drug., 158, cm, 12/17/23 1... Start Date: 12/17/23 Status: Ordered oxyCODONE 5 mg oral tablet 5 mg, 1, tablet, By Mouth, Every 6 hours, PRN, # 8 tablet, Refills 0, Tot. Refills 0, Maintenance, Pain , Moderate, 12/17/23 15:17:00 EDT, Route to Pharmacy Electronically, [facility], Partial fill upon patient request if [...] brain 2023 1 Confirmed Active 1Normal MRV Social History Social History Type Response Smoking Status Never smoker entered on: 04/27/14 Sex Patient Care team information Care Team Personnel Name: Roger RODRIGUEZ, Felisa Tsang Position: MAJORS RN Member Role: Primary Care Nurse Name: Laxmi Sommer NP Position: Reference Physician Member Role: PCP Address: Address: [address] [place] [address], [place] [address]- Name: Nhung Mcfadden RN Position: RANJIT RN Member Role: Primary Care Nurse Name: Esther Liu NP Position: [facility] Associate Professional Member Role: Primary Care Nurse Care Team Related Persons Name: LIZZETTE MARLANDO Address: [address] Address: home [address] [place] [address] Name: ZAIDCANDY Address: home [address] [address] Name: BART SOLORIO Address: home [address] [place] [address] Name: CLINTON FREITAS Address: [place] [address]
--- OUTSIDE RECORDS SUMMARY | 2024-03-22 18:18 | XMS_ITS | Continuity of Care Document ---
Author Organization [facility] Address [address] [place] [address]- Care Team Providers Care Manager Process Excellence Name Role Phone Ros HYMAN, Laxmi Vazquez Primary [facility]icia [id number] Date[facility]16/23 - 09/23/23 [facility] [address] [place] [address]- Encounter Diagnosis Chronic diarrhea(Discharge Diagnosis) - 09/16/23 Rectal bleeding(Discharge Diagnosis) - 09/16/23 S/P cholecystectomy(Discharge Diagnosis) - 09/16/23 Internal hemorrhoids(Discharge Diagnosis) - 09/17/23 Dysphagia(Discharge Diagnosis) - 09/16/23 Poor diet(Discharge Diagnosis) - 09/17/23 Attending Physician: Bobby Canales MD Referring Physician: Marvin Beckett MD Allergies, Adverse Reactions, Alerts No Known [...] Stop Date: 09/10/24 Status: Ordered NuLYTELY Lemon [place] oral powder for reconstitution See Instructions, as [...] Effective Dates Health Status Clinical Service Informant Chronic diarrhea Discharge Diagnosis 09/16/23 Rectal bleeding Discharge Diagnosis 09/16/23 S/P cholecystectomy Discharge Diagnosis 09/16/23 Dysphagia Discharge Diagnosis 09/16/23 Internal hemorrhoids Discharge Diagnosis 09/17/23 Poor diet Discharge Diagnosis 09/17/23 Vital Signs Most recent to oldest [Reference Range]: 1 Height 158 cm (09/16/23 11:05 AM) Weight 110.8 kg (09/16/23 11:05 AM) Oxygen Saturation [94-100 %] 99 % (09/16/23 11:05 AM) Pulse Rate [55-90 bpm] 76 bpm (09/16/23 11:05 AM) Body Mass Index [18.5-24.99 kg/m2] 44.38 kg/m2 *>HHI* (09/16/23 11:05 AM) Blood Pressure [90-138/55-84 mm Hg] 105/ 70mm Hg (09/16/23 11:05 AM) Respiratory Rate [16-30 br/min] 16 br/mi n (09/16/23 11:05 AM) Mode of Delivery (Oxygen) Room air (09/16/23 11:05 AM) Blood pressure sites Arm, left (09/16/23 11:05 AM) Weight Obtained Via Bed scale (09/16/23 11:05 AM) Social History Social History Type Response Smoking Status Never smoker entered on: 04/27/14 Sex Note * Bonita James: PERFORM, SIGN, VERIFY Event Display: Patient Education/Instruction Authored Date: [facility] *[facility] Clinical Summary Name SOHA COLLINS Age 28 Years 1995 PCP Ros HYMAN, Laxmi Vazquez PCP Visit Date 09/16/2023 10:51:00 Additional Instructions: Scheduled Appointments?? Future Appointments ?*[facility]??Neurology ?[address] ?[place],??[place],??[address] ?Phone:??--?Fax:??-- ?Appt. Date:??12/07/2023?11:00 AM ?Scheduled Provider:??Merari HYMAN, Carmen Cabrera Follow-Up Instructions ?? Diagnosis Noninfective gastroenteritis and colitis, unspecified; Dysphagia, unspecified; Acquired absence of other specified parts of digestive tract; Hemorrhage of anus and rectum Medications: Please continue your medications until treatment is completed or stopped by your provider. Discuss any questions related to medications with your provider. New Medications [facility] #[id number], [address], [place] [id number], [phone] Colestipol (colestipol 1 gm oral tablet) 2 tab(s) Oral twice a day for 30 Days. Refills: 11. Next Dose: PEG Electrolyte Solution (NuLYTELY Lemon Lummi oral powder for reconstitution) as directed by office. Refills: 0. Next Dose: Allergy Info:?? NKA Medications Given This Visit Future Orders ?No future orders Future Orders ?Calprotectin Fecal? Order Date:09/16/23?- Complete within?Celiac Disease Comprehensive? Order Date:09/16/23?- Complete within? Vital Signs Height 158 cm Weight 110.8 kg BMI 44.38 kg/m2 Blood Pressure 105 mm Hg/70 mm Hg Temperature Pulse Rate 76 bpm Respiratory Rate 16 br/min 02 Sat Mode of Delivery 99 %/Room air You can now view a summary of your hospital visit from the comfort of your home through a free online portal called Zollo. Zollo is a website that allows you to securely view your medical information including discharge summary, medications and follow-up visits. ??You can alsosend a secure electronic message to your doctor???s office to request appointments, renew medications or just ask a question. You can enroll at [email or web address] or register during your next office visit. Disclaimer:?? The information provided is of a general nature and is intended to be used in conjunction with the recommendations and advice of your health care practitioner. ??Every effort has been made to ensure that the information provided is accurate and complete at the time it is provided to you however, as your needs change, or, as new ??information becomes available, different or additional instructions may be required. If you have questions, please consult with your primary care provider or pharmacist, as appropriate. ??This information is not intended to serve as substitution for assessment and evaluation by a qualified health care provider. If you do not have a primary care provider, you may find a [facility] provider by calling [facility] at [phone]. [facility], in keeping with [facility] guidance, no longer requires face masks for staff, patientsor visitors in most situations. Similar to time spent indoors at other locations, there is the chance that you were exposed to respiratory viruses during your time with us (such as flu or COVID-19).? If you develop symptoms concerning for a viral respiratory infection, please seek testing (and treatment if indicated) from your medical provider or home test kit. For information about the plan of care including goals and instructions for your diagnosis, please see the patient education orders section of this document. Patient Education Materials?? The content of this educational material or handout may have been modified, supplemented, or adapted from its original content and format to support your individualized medical care. Patient Care team information Care Team Personnel Name: Laxmi Sommer NP Position: Reference Physician Member Role: PCP Address: Address: [address] [place] [address] Name: Esther Liu NP Position: S Associate Professional Member Role: Primary Care Nurse Care Team Related Persons Name: CANDY MAR Address: [address] Address: home [address] [place] [address] Name: CANDY MAR Address: home [address] [address] Name: BART SOLORIO Address: home [address] [place] [address] Name: CLINTON FREITAS Address: home [facility] [address]
--- OUTSIDE RECORDS SUMMARY | 2024-03-22 18:18 | XMS_ITS | Continuity of Care Document ---
Author Organization [facility] Address [address] [facility], 3r d Floor, [address] [place] [address]- Care Team Providers Care Microbiology Lab Analyst Name Role Phone Laxmi Sommer NP Primary Care Physicia n [place] [facility] [place]18[place]23 - 09/17/23 [facility] [address], 3rd Floor, [address] [place] [address]- Allergies, Adverse Reactions, Alerts No Known Allergies [...] Stop Date: 09/10/24 Status: Ordered NuLYTELY Lemon [place] oral powder for reconstitution See Instructions, as [...] Physician Member Role: PCP Address: Address: [address] [place] [address]- Name: Esther Liu NP Position: [facility] Associate Professional Member Role: Primary Care Nurse Care Team Related Persons Name: CANDY MAR Address: [address] Address: home [address] [place] [address] Name: CANDY MAR Address: home [address] [facility] 4 [place] [address] Name: BART SOLORIO Address: home [address] [place] [address] Name: CLINTON FREITAS Address: home [place] [address]
--- OUTSIDE RECORDS SUMMARY | 2024-03-22 18:18 | XMS_ITS | Continuity of Care Document ---
Author Organization [facility] Surgical [facility] sociates Address [address] [place] [address] [address] [place] [address]- Care Team Providers Care Stock Unloader Name Role Phone Ros HYMAN, Laxmi Vazquez Primary Care Physicia n Encounter [facility] Date(s): 10/01/23 - 01/29/[address] [place] [address]- Attending Physician: Edelmira Angulo RD Allergies, Adverse [...] 12/17/23 15:18:00 EDT, Route to Pharmacy Electronically, [facility], Partial fill upon patient [...] 3 Refills, Maintenance, 12/17/23 15:18:00EDT, EC Capsule, [facility], Partial fill upon patient request if the prescription isfor a schedule II opioid drug., 158, cm, 12/17/23 1... Start Date: 12/17/23 Status: Ordered oxyCODONE 5 mg oral tablet 5 mg, 1, tablet, By Mouth, Every 6 hours, PRN, # 8 tablet, Refills 0, Tot. Refills 0, Maintenance, Pain , Moderate, 12/17/23 15:17:00 EDT, Route to Pharmacy Electronically, [facility], Partial fill upon patient [...] Reference Physician Member Role: PCP Address: Address: [address] [place] [address]- Name: Nhung Mcfadden RN Position: S RN Member Role: Primary Care Nurse Name: Esther Liu NP Position: S Associate Professional Member Role: Primary Care Nurse Care Team Related Persons Name: CANDY MAR Address: [address] Address: home [address] [place] [address] Name: CANDY MAR Address: home [address] [facility] 4 [place] [address] Name: BART SOLORIO Address: home [address] [place] [address] Name: CLINTON FREITAS Address: [place] [address]
--- OUTSIDE RECORDS SUMMARY | 2024-03-22 18:18 | XMS_ITS | Continuity of Care Document ---
Author Organization [facility] As count includes [facility] Address [address] [place] [address] Dr [address] [place] [address]- Care Team Providers Care Lace Roller Operator Name Role Phone Ros HYMAN, Laxmi Vazquez Primary Care Physicia n [place] [facility] [place]s): 11/25/23 - 12/02/[address] [place], [place] [address] Attending Physician: Knee RD, Edelmira Allergies, Adverse Reactions, Alerts No Known Allergies [...] Stop Date: 09/10/24 Status: Ordered NuLYTELY Lemon [place] oral powder for reconstitution See Instructions, as [...] Reference Physician Member Role: PCP Address: Address: [address] [place] [address]- Name: Esther Liu NP Position: [facility] Associate Professional Member Role: Primary Care Nurse Care Team Related Persons Name: CANDY MAR Address: [address] Address: home [address] [place] [address] Name: CANDY MAR Address: home [address] [address] Name: BART SOLORIO Address: home [address] [place] [address] Name: CLINTON FREITAS Address: home [place] [id number]
--- OUTSIDE RECORDS SUMMARY | 2024-03-22 18:18 | XMS_ITS | Continuity of Care Document ---
Author Organization [facility] Address [address] [facility], 3r d Floor, [address] [place] [address]- Care Team Providers Care Brass Cleaner Name Role Phone Laxmi Sommer NP Primary Care Physicia n Encounter [facility] [place] Date(s): 08/28/23 - 09/27/23 [facility] [address] [place] [address] Floor, [address] [place] [address]- Allergies, Adverse Reactions, Alerts No Known Allergies [...] Stop Date: 09/10/24 Status: Ordered NuLYTELY Lemon [place] oral powder for reconstitution See Instructions, as [...] Reference Physician Member Role: PCP Address: Address: [address] [place] [address] Name: Esther Liu NP Position: [facility] Associate Professional Member Role: Primary Care Nurse Care Team Related Persons Name: CANDY MAR Address: [address] Address: home [address] [place] [address] Name: CANDY MAR Address: home [address] [facility] 4 [place] [address] Name: BART SOLORIO Address: home [address] [place] [address] Name: CLINTON FREITAS Address: home [place] [address]
--- OUTSIDE RECORDS SUMMARY | 2024-03-22 18:18 | XMS_ITS | Continuity of Care Document ---
Author Organization [facility] Address [address] [facility], 3r d Floor, [address] [place] [address]- Care Team Providers Care Livestock Nutritionist Name Role Phone Laxmi Sommer NP Primary Care Physicia n En[place] [facility] [place] Date(s): 09/18/23 - 10/18/23 [facility] [address] [facility] [address] [place] [address]- Attending Physician: Judith Grubbs Admitting Physician: AdmtrJudith [...] Stop Date: 09/10/24 Status: Ordered NuLYTELY Lemon [place] oral powder for reconstitution See Instructions, as [...] Reference Physician Member Role: PCP Address: Address: [address] [place] [address] Name: Esther Liu NP Position: [facility] Associate Professional Member Role: Primary Care Nurse Care Team Related Persons Name: CANDY MAR Address: [address] Address: home [address] [place] [address] Name: CANDY MAR Address: [address] [address] Name: BART SOLORIO Address: home [address] [place] [address] Name: CLINTON FREITAS Address: [place] [address]
--- OUTSIDE RECORDS SUMMARY | 2024-03-22 18:18 | XMS_ITS | Continuity of Care Document ---
Author Organization [facility] Address [address] [place] [address] [address] [place] [address]- Care Team Providers Care Differential Tester Name Role Phone Laxmi Sommer NP Primary Care Physicia n En[place] [facility] [place] Date(s): 09/10/23 - 09/17/[address] [place] [address]- Encounter Diagnosis Rectal bleeding(Discharge Diagnosis) - 09/10/23 Attending Physician: Marvin Beckett MD Referring Physician: Laxmi Sommer NP Allergies, [...] Stop Date: 09/10/24 Status: Ordered NuLYTELY Lemon [place] oral powder for reconstitution See Instructions, as [...] Diagnosis Diagnosis Type Effective Dates Health Status inical Service Informant Rectal bleeding Discharge Diagnosis 09/10/23 Vital Signs Most recent to oldest [Reference Range]: 1 Height 158 cm (09/10/23 2:02 PM) Weight 110.3 kg (09/10/23 2:02 PM) Pulse Rate [55-90 bpm] 68 bpm (09/10/23 2:02 PM) Body Mass Index [18.5-24.99 kg/m2] 44.18 kg/m2 *>HHI* (09/10/23 2:02 PM) Blood Pressure [90-138/55-84 mm Hg] 133/ 71mm Hg (09/10/23 2:02 PM) Temperature [96.8-100.4 DegF] 96.4 DegF *L* (09/10/23 2:02 PM) Blood pressure sites Arm, right (09/10/23 2:02 PM) Temperature Route Temporal (09/10/23 2:02 PM) Social History Social History Type Response Smoking Status Never smoker entered on: 04/27/14 Sex Patient Care team information Care Team Personnel Name: Laxmi Sommer NP Position: Reference Physician Member Role: PCP Address: Address: [address] [place] [address]- Name: Esther Liu NP Position: [facility] Associate Professional Member Role: Primary Care Nurse Care Team Related Persons Name: CANDY MAR Address: home [address] [address] Name: CANDY MAR Address: [address] Address: home [address] [place] [address] Name: BART SOLORIO Address: home [address] [place] [address] Name: CLINTON FREITAS Address: home [place] [address]
--- OUTSIDE RECORDS SUMMARY | 2024-03-22 18:18 | XMS_ITS | Continuity of Care Document ---
Author Organization [facility] Address [address] [facility], 3r d Floor, [address] [place] [address]- Care Team Providers Care Crisis Specialist Name Role Phone Ros HYMAN, Laxmi Vazquez Primary Care Physicia n Encounter [facility] [place] Date(s): 09/08/23 - 01/06/24 [facility] [address] [place] [address] Floor, [address] [place] [address]- Attending Physician: Carmen Coombs NP Admitting Physician: Carmen Coombs NP Allergies, Adverse Reactions, Alerts No Known [...] 12/17/23 15:18:00 EDT, Route to Pharmacy Electronically, [facility], Partial fill upon patient request [...] 3 Refills, Maintenance, 12/17/23 15:18:00EDT, EC Capsule, [facility], Partial fill upon patient request if the prescription isfor a schedule II opioid drug., 158, cm, 12/17/23 1... Start Date: 12/17/23 Status: Ordered oxyCODONE 5 mg oral tablet 5 mg, 1, tablet, By Mouth, Every 6 hours, PRN, # 8 tablet, Refills 0, Tot. Refills 0, Maintenance, Pain , Moderate, 12/17/23 15:17:00 EDT, Route to Pharmacy Electronically, [facility], Partial fill upon patient request [...] Reference Physician Member Role: PCP Address: Address: [address] [place] [address]- Name: Nhung Mcfadden RN Position: S RN Member Role: Primary Care Nurse Name: Esther Liu NP Position: [facility] Associate Professional Member Role: Primary Care Nurse Care Team Related Persons Name: CANDY MAR Address: home [address] [facility] 4 [place] [address] Name: REESE MARO Address: [address] Address: home [address] [place] [address] Name: BART SOLORIO Address: home [address] [place] [address] Name: CLINTON FREITAS Address: [place] [address]
--- OUTSIDE RECORDS SUMMARY | 2024-03-22 18:18 | XMS_ITS | Continuity of Care Document ---
Author Organization [facility] Address [address] [facility], 3r d Floor, [address] [place] [address]- Care Team Providers Care Medical Accounts Receivable Specialist Name Role Phone Laxmi Sommer NP Primary Care Physicia n Encounter [facility] [place] Date(s): 12/07/23 - 01/06/24 [facility] [address] [place] [address] Floor, [address] [place] [address]- Attending Physician: Judith Grubbs Admitting Physician: AdmJudith peres Referring Physician: Admtr, Ar8 Allergies, Adverse Reactions, Alerts No Known Allergies [...] 12/17/23 15:18:00 EDT, Route to Pharmacy Electronically, [facility], Partial fill upon patient [...] 3 Refills, Maintenance, 12/17/23 15:18:00EDT, EC Capsule, [facility], Partial fill upon patient request if the prescription isfor a schedule II opioid drug., 158, cm, 12/17/23 1... Start Date: 12/17/23 Status: Ordered oxyCODONE 5 mg oral tablet 5 mg, 1, tablet, By Mouth, Every 6 hours, PRN, # 8 tablet, Refills 0, Tot. Refills 0, Maintenance, Pain , Moderate, 12/17/23 15:17:00 EDT, Route to Pharmacy Electronically, [facility], Partial fill upon patient [...] Reference Physician Member Role: PCP Address: Address: [address] [place] [address]- Name: Nhung Mcfadden RN Position: S RN Member Role: Primary Care Nurse Name: Esther Liu NP Position: [facility] Associate Professional Member Role: Primary Care Nurse Care Team Related Persons Name: REESE MARO Address: home [address] [facility] 4 [place] [address] Name: LIZZETTE MARLANDO Address: [address] Address: home [address] [place] [address] Name: BART SOLORIO Address: home [address] [place] [address] Name: CLINTON FREITAS Address: [place] [address]
--- OUTSIDE RECORDS SUMMARY | 2024-03-22 18:18 | XMS_ITS | Continuity of Care Document ---
Author Organization [facility] ter Address [address] [place] [id number]- Care Team Providers Care Agents' Records Clerk Name Role Phone Ros HYMAN, Laxmi Vazquez Primary Care Physicia n Encounter [facility] Date(s): 12/21/23 - 12/21/[address] [address]- Discharge Disposition: A-D/C Home Attending Physician: Edilma Ruth DO Admitting Physician: Edilma Ruth DO Referring Physician: Not on Staff, Referring MD [...] 12/17/23 15:18:00 EDT, Route to Pharmacy Electronically, [facility], Partial fill upon patient request if the presc... Start Date: 12/17/23 Status: Ordered omeprazole 20 mg oral enteric coated capsule 1 capsule = 20 mg, By Mouth, 2 times a day, # 60 capsule, 3 Refills, Maintenance, 12/17/23 15:18:00EDT, EC Capsule, [facility], Partial fill upon patient request if the prescription isfor a schedule II opioid drug., 158, cm, 12/17/23 1... Start Date: 12/17/23 Status: Ordered oxyCODONE 5 mg oral tablet 5 mg, 1, tablet, By Mouth, Every 6 hours, PRN, # 8 tablet, Refills 0, Tot. Refills 0, Maintenance, Pain , Moderate, 12/17/23 15:17:00 EDT, Route to Pharmacy Electronically, [facility], Partial fill upon patient request [...] brain 2023 06 Confirmed Active 1Normal MRV Results Radiology Reports * Exam Date Time Procedure Performing Provider Status 12/21/23 3:01 AM Chest 2 Views Frontal and Lat Flores Beasley; Doroteo (Verified) Notes: (Chest 2 Views Frontal and Lat) Reason For Exam: Chest Pain;Other: RESULT: Chest 2 Views Frontal and Lat Chest 2 Views Frontal and Lat Hx of Present Illness: s p bariatric surgery December 15 reports chest pain rad to shoulder blade I honestly 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 FINDINGS: LINES AND TUBES: None. LUNGS AND PLEURA: Clear lungs. Normal pulmonary vascularity. No pleural effusion. No pneumothorax. HEART, MEDIASTINUM AND KERI: Heart is normal in size. Normal mediastinal and hilar contour. BONES AND SOFT TISSUES: No acute abnormality. IMPRESSION: No acute abnormality. I have personally reviewed the images and I agree with this report. WSN: [id number] Ordering Physician: Guicho Hernandez Dictated By: Fabian Leonardo DO Dictated Date/Time: 12/21/23 8:30 am Reviewed By: Garcia Hein MD, V Signed By: Garcia Hein MD, V Signed Date/Time: 12/21/23 8:35 am Transcribed By: JYOTHI Transcribed Date/Time: 12/21/23 7:56 am * Exam Date Time Procedure Performing Provider Status 12/21/23 6:[address] Abd/Pelvis W/ IV Contrast Only Brennon Negron; Doroteo (Verified) Notes: (CT Abd/Pelvis W/ IV Contrast Only) Reason For Exam: LUQ abdominal pain;Other: RESULT: CT Abd/Pelvis W/ IV Contrast Only EXAMINATION: CT Angio Chest, CT Abd/Pelvis W/ IV Contrast Only INDICATION: Hx of Present Illness: s p bariatric surgery December 15 reports chest pain rad to shoulderblade 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 Spiral CT of the abdomen and pelvis was then performed in the portal venous phase. Images are formatted in multiple planes using 2-D multiplanar and 3-D maximum intensity projection. 100 cc of Omnipaque 300 was administered intravenously.Weight-based protocol using automatic tube modulation was used to optimize exposure parameters. CTDIvol Body: 14.92 mGy, DLP Body: 1546 mGy*cm. COMPARISONS: None. ANGIOGRAPHIC FINDINGS: No pulmonary embolism to the subsegmental level. Normal caliber pulmonary arteries. No acute aortic abnormality seen on this study performed without cardiac gating. NON-ANGIOGRAPHIC FINDINGS: Director Product View Findings, Lines and Tubes: None. Trachea and Airways: Patent without evidence of tracheal or endobronchial lesion. Lungs and Pleura: 3 mm left upper lobe calcified granuloma. Clear lungs. No effusion or pneumothorax. Mediastinum and keri: No mass or hematoma. No mediastinal or hilar lymphadenopathy. No esophageal abnormality. Partially imaged thyroid is unremarkable. Heart: Heart is normal in size. No pericardial effusion. No coronary arterial calcifications. Chest Wall Soft Tissues: Normal. Diaphragm : No significant abnormality. Liver: Focal fat at the falciform ligament with mild borderline to diffuse hepatic steatosis throughout. No focal mass or lesion. Gallbladder: Absent consistent with prior cholecystectomy. Bile ducts: No biliary ductal dilation. Spleen: Normal. Pancreas: Normal. Adrenal glands: Normal. Kidneys and ureters: No hydronephrosis, stones, or suspicious masses. Bladder: Normal. Reproductive organs: Unremarkable. Stomach, small bowel, and large bowel: Status post sleeve gastrectomy. Few foci of fat stranding along the surgical suture site adjacent to the greater curvature (series 501, image 36) is most likelyrelated to recent postsurgical changes. No evidence of fluid collection, abscess or extraluminal gas adjacent to the surgical staple site. Normal caliber small and large bowel without evidence of obstruction or inflammation. Appendix: Normal appendix Peritoneum and retroperitoneum: No ascites or pneumoperitoneum. No omental or mesenteric lesions. Lymph nodes: No enlarged lymph nodes. Abdominal and pelvic wall: A tiny fat-containing umbilical hernia. Mild inflammatory changes in thesupraumbilical anterior abdominal wall and right upper quadrant abdominal wall reactive to the portsite. Bones: No acute abnormality. IMPRESSION: No evidence of pulmonary embolism. Status post sleeve gastrectomy. Few foci of fat stranding adjacent to the greater curvature along the surgical staple is likely reactive to recent surgery, as well as mild subcutaneous soft tissue stranding at the anterior abdomen. No evidence of fluid collection, abscess or perforation. I have personally reviewed the images and I agree with this report. WSN: [id number] Ordering Physician: Mayur Kemp Dictated By: Susan Watson MD Dictated Date/Time: 12/21/23 7:52 am Reviewed By: Mikayla Quispe MD Signed By: Mikayla Quispe MD Signed Date/Time: 12/21/23 7:57 am Transcribed By: JYOTHI Transcribed Date/Time: 12/21/23 6:43 am * Exam Date Time Procedure Performing Provider Status 12/21/23 6:[address] Angio Chest Brennon Negron; (Verified) Notes: (CT Angio Chest) Reason For Exam: PE suspected, Intermediate prob, positive D-dimer,;Other: RESULT: CT Angio Chest EXAMINATION: CT Angio Chest, CT Abd/Pelvis W/ IV Contrast Only INDICATION: Hx of Present Illness: s p bariatric surgery December 15 reports chest pain rad to shoulderblade 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 Spiral CT of the abdomen and pelvis was then performed in the portal venous phase. Images are formatted in multiple planes using 2-D multiplanar and 3-D maximum intensity projection. 100 cc of Omnipaque 300 was administered intravenously.Weight-based protocol using automatic tube modulation was used to optimize exposure parameters. CTDIvol Body: 14.92 mGy, DLP Body: 1546 mGy*cm. COMPARISONS: None. ANGIOGRAPHIC FINDINGS: No pulmonary embolism to the subsegmental level. Normal caliber pulmonary arteries. No acute aortic abnormality seen on this study performed without cardiac gating. NON-ANGIOGRAPHIC FINDINGS: Director Product View Findings, Lines and Tubes: None. Trachea and Airways: Patent without evidence of tracheal or endobronchial lesion. Lungs and Pleura: 3 mm left upper lobe calcified granuloma. Clear lungs. No effusion or pneumothorax. Mediastinum and keri: No mass or hematoma. No mediastinal or hilar lymphadenopathy. No esophageal abnormality. Partially imaged thyroid is unremarkable. Heart: Heart is normal in size. No pericardial effusion. No coronary arterial calcifications. Chest Wall Soft Tissues: Normal. Diaphragm : No significant abnormality. Liver: Focal fat at the falciform ligament with mild borderline to diffuse hepatic steatosis throughout. No focal mass or lesion. Gallbladder: Absent consistent with prior cholecystectomy. Bile ducts: No biliary ductal dilation. Spleen: Normal. Pancreas: Normal. Adrenal glands: Normal. Kidneys and ureters: No hydronephrosis, stones, or suspicious masses. Bladder: Normal. Reproductive organs: Unremarkable. Stomach, small bowel, and large bowel: Status post sleeve gastrectomy. Few foci of fat stranding along the surgical suture site adjacent to the greater curvature (series 501, image 36) is most likelyrelated to recent postsurgical changes. No evidence of fluid collection, abscess or extraluminal gas adjacent to the surgical staple site. Normal caliber small and large bowel without evidence of obstruction or inflammation. Appendix: Normal appendix Peritoneum and retroperitoneum: No ascites or pneumoperitoneum. No omental or mesenteric lesions. Lymph nodes: No enlarged lymph nodes. Abdominal and pelvic wall: A tiny fat-containing umbilical hernia. Mild inflammatory changes in thesupraumbilical anterior abdominal wall and right upper quadrant abdominal wall reactive to the portsite. Bones: No acute abnormality. IMPRESSION: No evidence of pulmonary embolism. Status post sleeve gastrectomy. Few foci of fat stranding adjacent to the greater curvature along the surgical staple is likely reactive to recent surgery, as well as mild subcutaneous soft tissue stranding at the anterior abdomen. No evidence of fluid collection, abscess or perforation. I have personally reviewed the images and I agree with this report. WSN: [id number] Ordering Physician: Mayur Kemp Dictated By: Susan Watson MD Dictated Date/Time: 12/21/23 7:52 am Reviewed By: Mikayla Quispe MD Signed By: Mikayla Quispe MD Signed Date/Time: 12/21/23 7:57 am Transcribed By: JYOTHI Transcribed Date/Time: 12/21/23 6:43 am Vital Signs Most recent to oldest [Reference Range]: 1 2 3 Oxygen Saturation [94-100 %] 100 % (12/21/23 7:29 AM) 100 % (12/21/23 12:26 AM) 97 % (12/21/23 12:24 AM) Pulse Rate [55-90 bpm] 64 bpm (12/21/23 7:29 AM) 66 bpm (12/21/23 12: AM) 102 bpm *H* (12/21/23 12:24 AM) Blood Pressure [90-138/55-84 mm Hg] 103/73mm Hg (12/21/23 7:29 AM) 111/71mm Hg (12/21/23 12:26 AM) Respiratory Rate [16-30 br/min] 18 br/min (12/21/23 7:29 AM) 16 br/min (12/21/23 12:26 AM) Temperature [96.8-100.4 DegF] 98.3 DegF (12/21/23 12:26 AM) Mode of Delivery (Oxygen) Room air (12/21/23 7:29 AM) Room air (12/21/23 12:26 AM) Blood pressure sites Arm, left (12/21/23 7:29 AM) Temperature Route Oral (12/21/23 12:26 AM) Dry Weight 107 kg (12/21/23 7:29 AM) 107 kg (12/21/23 12:26 AM) Social History Social History Type Response Smoking Status Never smoker entered on: 04/27/14 Sex EKG study * Event Display: ECG 12-Lead Authored Date: Please click on pdf link to open report * Event Display: ECG 12-Lead Authored Date: Ventricular Rate: 64 BPM Atrial Rate: 64 BPM P-R Interval: 132 ms QRS Duration: 64 ms Q-T Interval: 406 ms QTC Calculation(Bazett): 418 ms P [place]: 21 degrees R [place]: 46 degrees T [place]: -21 degrees Normal sinus rhythm Nonspecific T wave abnormality Abnormal ECG When compared with ECG of 21-DEC-2023 01:27, No significant change was found Confirmed by FELIX MON MD ([id number]) on 12/21/2023 7:43:06 AM Kunkle: FELIX MON MD * Event Display: ECG 12-Lead Authored Date: [id number] Please click on pdf link to open report * Event Display: ECG 12-Lead Authored Date: Ventricular Rate: 60 BPM Atrial Rate: 60 BPM P-R Interval: 120 ms QRS Duration: 62 ms Q-T Interval: 400 ms QTC Calculation(Bazett): 400 ms P [place]: 35 degrees R [place]: 60 degrees T [place]: -28 degrees Normal sinus rhythm T wave abnormality, consider anterolateral ischemia Abnormal ECG When compared with ECG of 21-DEC-2023 00:55, No significant change Confirmed by MELINDA GALVEZ ([id number]) on 12/21/2023 7:38:38 AM Kunkle: MELINDA GALVEZ * Event Display: ECG 12-Lead Authored Date: [id number] Please click on pdf link to open report * Event Display: ECG 12-Lead Authored Date: Ventricular Rate: 70 BPM Atrial Rate: 70 BPM P-R Interval: 124 ms QRS Duration: 68 ms Q-T Interval: 364 ms QTC Calculation(Bazett): 393 ms P [place]: 66 degrees R [place]: 54 degrees T [place]: -37 degrees Normal sinus rhythm T wave abnormality, consider anterolateral ischemia Abnormal ECG When compared with ECG of 02-DEC-2023 09:25, Inverted T waves have replaced nonspecific T wave abnormality in Anterolateral leads Confirmed by MELINDA GALVEZ ([id number]) on 12/21/2023 7:38:28 AM Kunkle: MELINDA GALVEZ Consult note * Wyatt MOSS, Penelope Martini: PERFORM Event Display: Consultation Note Authored Date: [id number] Patient: ??TRINITY COLLINS ? Age:??28 Years?Sex:??Female?:??1995?? Chief Complaint/Reason for Consult Chest pain post op History of Present Illness Trinity is a 28-year-old female who??has a past medical history of morbid obesity??as well as anxiety??depression who??is postop day 5 from a laparoscopic??gastrectomy with Dr. Mckenzie.?? She presents emergency department after developing sudden onset chest pain??on the left side of her chest that ??migrates??to??underneath her left breast.?? She is??says that the pain is difficult to describe and is not crushing in nature but is more of an aching??feeling. ??She denies any shortness of breathor ever having pain like this before.?? She??is struggling to take in her??shakes as she says they??give her epigastric pain??but is doing her best. ??She is tolerating other??liquids without any issues.?She denies any vomiting but is experiencing some nausea?? On exam her abdomen is soft, nondistended and appropriately tender to palpation.?? She is hemodynamically stable and afebrile.?? She denies any fevers, chills, headaches,??dizziness, or syncope. ??Is passing gas has not had a bowel movement since prior to her surgery. ??She is taking Colace and MiraLAX at home. Review of Systems Negative unless stated above Physical Exam Vitals & Measurements T:??98.3?F?? HR:??64??(Peripheral)?? RR:??18?? BP:??103/73?? SpO2:??100%?? PHYSICAL EXAMINATION: GENERAL: No acute distress. Non-toxic. Well appearing and interactive.?? HEAD: Normocephalic. Atraumatic.?? EYES: Extra-ocular movements intact. ENT: Patent nares and oropharynx.?? CARDIAC: Regular rate and rhythm. RESPIRATORY: Equal and symmetric breaths. GASTROINTESTINAL: Soft. Non-distended. Appropriately tender. No guarding. No rebound tenderness.?? MUSCULOSKELETAL: Moving all extremities equally. No calf fullness or tenderness.?? SKIN: Warm and well perfused. Intact skin turgor. No edema noted on exam.??Incisions c/d/i. Assessment/Plan Trinity is a 28-year-old female who is postop day 5 from a laparoscopic sleeve gastrectomy with Dr. Mckenzie. ??She presents to the emergency department with sudden onset chest pain. ??EKG was obtained that showed sinus rhythm with??nonspecific T wave??changes from her previous EKG.?? Troponins were ordered which were??normal.?No leukocytosis with a white count of 8.8, but does have a slight CHRISTIAN with a creatinine of 1.27.?Given concern for possible PE she underwent??a CTA which was negative for??a PE as well as a CT abdomen pelvis that demonstrated??mild inflammatory changes around thestaple line but no evidence of a leak.?? My suspicion for leak is??very low??as she??is afebrile,??not tachycardic,??has no leukocytosis, and her abdominal exam is reassuring.?? There is currently no??indication for admission or surgical intervention.?? She should continue to take the pain medication as scheduled??and??continue??to take her protein shakes as directed.?? In addition she should continue with her bowel regimen??of Colace and MiraLAX. ?? BLUE [id number] Martinez ?? Problem List/Past Medical History Ongoing Binge eating disorder, in partial remission cardiac echogenic focus, antepartum History of hemorrhage Maternal varicella, non-immune Obesity, morbid, BMI 40.0-49.9 Rectal bleeding Severe obesity White matter disease, unspecified MRI brain 2023 Procedure/Surgical History Vaginal delivery: 2008 Laparoscopic cholecystectomy Home Medications Acetaminophen: 975 mg, By Mouth, Every 6 hours Docusate: 100 mg = 1 capsule, By Mouth, 2 times a day, PRN (for constipation) Omeprazole: 20 mg = 1 capsule, By Mouth, 2 times a day Oxycodone: 5 mg = 1 tablet, By Mouth, Every 6 hours, PRN (Pain , Moderate) Remove Patch: 1 each, Topically, Every 72 hours Scopolamine: 1 mg, Topically, Every 72 hours Allergies NKA Social History Alcohol Use: Current. Frequency: 1-2 times per week. Electronic Cigarette/Vaping Electronic Cigarette Use: Never. Employment/School Status: Unemployed. Exercise Self assessment: Excellent condition. Home/Environment Living situation: Home/Independent. Lives with: Children. Feels unsafe at home: No. Nutrition/Health Diet: Regular. Sexual Sexually involved in last 6 months: Yes. Gender identity: Identifies as female. Preferred pronoun: She/her. Substance Abuse Use: Never. Tobacco Use: Never smoker. Family History Mother: Depression; Substance abuse; Ulcerative colitis ?13-MAR-2014 21:07:46<$> Father: Unknown Patient Instructions DIAGNOSIS:??Chest pain ?? Your specific PATIENT CARE INSTRUCTIONS (what to do / when to return): You came to the [facility] emergency department with concern for chest pain??after your recent surgery.?? We got blood work here that was all reassuring.?? We got imaging??of your belly and spoke to surgery,??and they have cleared you from their standpoint??and just recommend??continued pain control at home with Tylenol and to continue taking her protein shakes.?? Your EKG here did have some very minor changes??from your previous EKG, however you did not have any obvious??signs of heart attack here??and your cardiac blood work was normal.?? We recommend you follow-up with cardiology??for this, especially if you continue to have these intermittent??chest pains. ??Their number is .?? Should??your pain??return or significantly worsen, if you develop palpitations,??if you develop trouble breathing,??if you develop recurrent vomiting??or severe abdominal pain??with fevers,??or ifyou have any other concerns, you should return to the emergency department.?? You should also call your PCP to schedule a follow-up appointment for a recheck. ?? MEDICATIONS (what medications you should start (or stop) taking): Tylenol as needed for pain control Continue to take your protein shakes per surgery recommendations. Lab Results Labs Last 24 Hours BLOOD COUNT & DIFF ? Event Name?? Event Result?? Date/Time?? WBC 8.8 k/mm3 12/21/23 00:58:00 RBC 4.86 m/mm3 12/21/23 00:58:00 Hgb 14.8 Gm/dL 12/21/23 00:58:00 Hct 44 % 12/21/23 00:58:00 MCV 90.5 femtoliters 12/21/23 00:58:00 MCH 30.5 pg 12/21/23 00:58:00 MCHC 33.6 g/dL 12/21/23 00:58:00 Platelet Count 223 k/mm3 12/21/23 00:58:00 MPV 10.1 femtoliters 12/21/23 00:58:00 Nucleated RBC (Automated) 0 #/100 WBC'S 12/21/23 00:58:00 ? CHEM GENERAL ? Event Name?? Event Result?? Date/Time?? Sodium 139 mmol/L 12/21/23 00:58:00 Chloride 102 mmol/L 12/21/23 00:58:00 Bicarbonate Level 22 mmol/L 12/21/23 00:58:00 Anion Gap 15 12/21/23 00:58:00 Glucose Level 80 mg/dL 12/21/23 00:58:00 BUN 14 mg/dL 12/21/23 00:58:00 Creatinine-Blood 1.27 mg/dL??High 12/21/23 00:58:00 ? * Magaly MOSS, Feli: PERFORM Event Display: Consultation Note Authored Date: [id number] Attending attestation: Patient's plan of care was discussed with the resident/NITESH. All pertinent labs and imaging reviewed.I agree with the findings and plan as documented in this note. Patient discharged prior to my exam.Workup negative for PE/ACS. CT scan without concern for fluid collection/leak. OK for outpatient follow-up. Note * Mayur Escobar: PERFORM, SIGN, VERIFY Event Display: Patient Education Handout Authored Date: [id number] * Sara Clinton DO: PERFORM Event Display: Patient Education Leaflets Authored Date: [id number] Uncertain Causes of Chest Pain ?? [id number] Uncertain Causes of Chest Pain Chest pain can happen for a number of reasons. Sometimes the cause can't be determined. If your??condition does not seem serious, and your pain does not appear to be coming from your heart, your healthcare provider may recommend watching it closely. Sometimes the signs of a serious problem take more time to appear. Many problems not related to your heart can cause chest pain. These include: ??? Musculoskeletal. Costochondritis is an inflammation of the tissues around the ribs that can occur from trauma or overuse injuries, or a strain of the muscles of the chest wall. ??? Respiratory. Pneumonia, collapsed lung (pneumothorax), or inflammation of the lining of the chest and lungs (pleurisy). ??? Gastrointestinal. Esophageal reflux, heartburn, ulcers, or gallbladder disease. ??? Anxiety and panic disorders ??? Nerve compression and inflammation ??? Rare problems such as aortic aneurysm or aortic dissection (a swelling of the large artery coming out of the heart or a tear in the wall of the artery), or pulmonary embolism (a blood clot in the lungs). Home care After your visit, follow these recommendations: ??? Rest today and avoid strenuous activity. ??? Take any prescribed medicine as directed. ??? Be aware of any recurrent chest pain and notice any changes ?? Follow-up care Follow up with your healthcare provider if you don't start to feel better within 24 hours, or as advised. ?? Call 911 Call 911 if any of these occur: ??? A change in the type of pain: if it feels different, becomes more severe, lasts longer, or begins to spread into your shoulder, arm, neck, jaw or back ??? Shortness of breath or increased pain with breathing ??? Weakness, dizziness, or fainting ??? Rapid heartbeat ??? Crushing sensation in your chest ??? Coughing up more than a small amount of blood. ?? When to seek medical advice Call your healthcare provider right away if any of the following occur: ??? Cough with dark coloredsputum (phlegm) or small amount of blood ??? Fever of 100.4??F??(38??C) or higher, or as directed by your healthcare provider ??? Swelling, pain or redness in one leg ?? Last Reviewed Date: 2021 ?? [id number] The [employer]. All rights reserved. This information is not intended as a substitute for professional medical care. Always follow your healthcare professional's instructions. ?? Patient Care team information Care Team Personnel Name: Felisa Duran RN Position: S RN Member Role: Primary Care Nurse Name: Laxmi Sommer NP Position: Reference Physician Member Role: PCP Address: Address: [address] [place] [id number] Name: Nhung Mcfadden RN Position: S RN Member Role: Primary Care Nurse Name: Esther Liu NP Position: [facility] Associate Professional Member Role: Primary Care Nurse Care Team Related Persons Name: REESE MARO Address: home [address] [place] [address] Name: LIZZETTE MARLANDO Address: [id number] Address: home [address] [place] [address] Name: BART SOLORIO Address: home [address] [place] [address] Name: CLINTON FREITAS [place]: [place] [address]
--- OUTSIDE RECORDS SUMMARY | 2024-03-22 18:18 | XMS_ITS | Continuity of Care Document ---
Author Organization [facility] As [facility] Address [address] [place] [address] [address] [place] [address]- Care Team Providers Care Ocular Pathologist Name Role Phone Ros HYMAN, Laxmi Vazquez Primary Care Physicia n Encounter [facility] Date(s): 12/29/23 - 03/03/[address] [place] [address]- Encounter Diagnosis S/P laparoscopic sleeve gastrectomy(Discharge Diagnosis) - 01/29/24 Attending Physician: Feli Mckenzie MD Allergies, Adverse [...] 12/17/23 15:18:00 EDT, Route to Pharmacy Electronically, [facility], Partial fill upon [...] 3 Refills, Maintenance, 12/17/23 15:18:00EDT, EC Capsule, [facility], Partial fill upon patient request if the prescription isfor a schedule II opioid drug., 158, cm, 12/17/23 1... Start Date: 12/17/23 Status: Ordered oxyCODONE 5 mg oral tablet 5 mg, 1, tablet, By Mouth, Every 6 hours, PRN, # 8 tablet, Refills 0, Tot. Refills 0, Maintenance, Pain , Moderate, 12/17/23 15:17:00 EDT, Route to Pharmacy Electronically, [facility], Partial fill upon [...] Informant S/P laparoscopic sleeve gastrectomy Discharge Diagnosis 01/29/24 Social History Social History Type Response Smoking Status Never smoker entered on: 04/27/14 Sex Patient Care team information Care Team Personnel Name: Roger RODRIGUEZ, Felisa Tsang Position: [facility] RN Member Role: Primary Care Nurse Name: Laxmi Sommer NP Position: Reference Physician Member Role: PCP Address: Address: [address] [place] [address]- [place] Name: Nhung Mcfadden RN Position: [facility] RN Member Role: Primary Care Nurse Name: Esther Liu NP Position: [facility] Associate Professional Member Role: Primary Care Nurse Care Team Related Persons Name: REESE MARO Address: [id number] Address: home [address] [place] [address] Name: ZAID CANDY Address: home [address] [address] Name: BART SOLORIO Address: home [address] [place] [address] Name: CLINTON FREITAS Address: [place] [address]
--- OUTSIDE RECORDS SUMMARY | 2024-03-22 18:18 | XMS_ITS | Continuity of Care Document ---
Author Organization [facility] Address [address] [facility], [address] d Floor, [address] [place] [address]- Care Team Providers Care Mix House Tender Name Role Phone Ros HYMAN, Laxmi Vazquez Primary Care Physicia n Encounter [facility] [place] Date(s): 08/10/23 - 09/10/23 [facility] [address], [address] Floor, [address] [place] [id number] Attending Physician: Sapphire HYMAN, Luz Hansen Admitting Physician: Sapphire HYMAN, Luz Hansen Referring Physician: Laxmi Sommer NP Allergies, Adverse Reactions, Alerts No Known Allergies Immunizations Given and Recorded Vaccine Date Status Refusal Reason tetanus/diphtheria/pertussis, acel(Tdap) 08/01/21 Given tetanus/diphtheria/pertussis, acel(Tdap) 05/04/14 Given Influenza Virus Vaccine (oldterm) 04/27/14 Given influenza virus vaccine, inactivated 1 08/01/11 Gi rosanna 1Admin Note: VIS DATED 01/21/2011 GIVEN. Medications cholestyramine 4 gm/9 gm oral powder for reconstitution = 4 Gm, By Mouth, 2 times a day, # 60 each, 3 Refills, Maintenance, 09/10/23 14:20:00 EDT, [id number], Partial fill upon patient request if the prescription is for a schedule II opioid drug.,158, cm, 09/10/23 14:02:00 EDT, Height, 113, kg, 01... Start Date: 09/10/23 Status: Ordered Medrol Dosepak 4 mg oral tablet 1 [...] 08/07/24 11:50:00 EST, 08/07/23 11:50:00 EST, Tablet, [id number], Partial fill upon patient re... Start Date: 08/07/23 Stop Date: 08/07/24 Status: Ordered nortriptyline 25 mg oral capsule 25 mg, 1, capsule, By Mouth, Daily at bedtime, # 30 capsule, Refills 5, Tot. Refills 5, Maintenance, 08/07/23 11:49:00 EST, Route to Pharmacy Electronically, [id number], Partial fill upon patient request if [...] Reference Physician Member Role: PCP Address: Address: [address] [place] [address]- Name: Esther Liu NP Position: [facility] Associate Professional Member Role: Primary Care Nurse Care Team Related Persons Name: CANDY MAR Address: home [address] [facility] [address] [place] [address] Name: CANDY MAR Address: [address] Address: home [address] [place] [address] Name: BART SOLORIO Address: home [address] [place] [address] Name: CLINTON FREITAS Address: home [place] [id number]
--- OUTSIDE RECORDS SUMMARY | 2024-03-22 18:18 | XMS_ITS | Continuity of Care Document ---
Author Organization [facility] Address [address] [place] [address] [address] [place] [address]- Care Team Providers Care Bark Press Operator Name Role Phone Ros HYMAN, Laxmi Vazquez Primary Care Physicia n Encounter [facility] [place] Date(s): 08/14/23 - 08/21/23 [facility] [address] [place] [address]- Attending Physician: Edelmira Angulo RD Allergies, Adverse [...] 08/07/23 11:49:00 EST, Route to Pharmacy Electronically, [id number], Partial fill upon patient request if the [...] oldest [Reference Range]: 1 Height 158 cm (08/14/23 11:06 AM) Weight 110.1 kg (08/14/23 11:06 AM) Body Mass Index [18.5-24.99 kg/m2] 44.1 kg/m2 *>HHI* (08/14/23 11:06 AM) Social History Social History Type Response Smoking Status Never smoker entered on: 04/27/14 Sex Patient Care team information Care Team Personnel Name: Laxmi Sommer NP Position: Reference Physician Member Role: PCP Address: Address: [address] [place] [address]- Name: Esther Liu NP Position: S Associate Professional Member Role: Primary Care Nurse Care Team Related Persons Name: CANDY MAR Address: home [address] [address] Name: CANDY MAR Address: [address] Address: home [address] [place] [address] Name: BART SOLORIO Address: home [address] [place] [address] Name: CLINTON FREITAS Address: home [place] [id number]
--- OUTSIDE RECORDS SUMMARY | 2024-03-22 18:18 | XMS_ITS | Continuity of Care Document ---
Author Organization [facility] Address [address] [place] [address] ve [address] [place] [address]- Care Team Providers Care Inspector Paper Products Name Role Phone Laxmi Sommer NP Primary Care Physicia n [place] [facility] 09/24/23 - 10/24/[address] [place] [address]- Allergies, Adverse Reactions, Alerts No Known Allergies [...] Stop Date: 09/10/24 Status: Ordered NuLYTELY Lemon [place] oral powder for reconstitution See Instructions, as [...] Reference Physician Member Role: PCP Address: Address: [address] [place] [id number] Name: Esther Liu NP Position: [facility] Associate Professional Member Role: Primary Care Nurse Care Team Related Persons Name: CANDY MAR Address: [address] Address: home [address] [place] [address] Name: CANDY MAR Address: home [address] [facility] 4 [place] [address] Name: BART SOLORIO Address: home [address] [place] [address] Name: CLINTON FREITAS Address: [place] [id number]
--- OUTSIDE RECORDS SUMMARY | 2024-03-22 18:18 | XMS_ITS | Continuity of Care Document ---
Author Organization [facility] Address [address] [place], [address] Floor, [address] [place] [address]- Care Team Providers Care Correctional Supervisor Name Role Phone Ros HYMAN, Laxmi Vazquez Primary Care Physicia n Encounter [facility] Date(s): 06/10/23 - 07/10/23 [facility] [address], [address], [address] [place] [id number] Allergies, Adverse Reactions, Alerts No Known Allergies [...] Maintenance, 01/29/22 10:22:00 EDT, DIS Tablet, [id number], Partial fill upon patient request if the [...] Reference Physician Member Role: PCP Address: Address: [address] [place] [address]- Name: Esther Liu NP Position: [facility] Associate Professional Member Role: Primary Care Nurse Care Team Related Persons Name: CANDY MAR Address: [address] Address: home [address] [place] [address] Name: CANDY MAR Address: [address] [address] Name: BART SOLORIO Address: home [address] [place] [address] Name: CLINTON FREITAS Address: home [place] [address]
--- OUTSIDE RECORDS SUMMARY | 2024-03-22 18:18 | XMS_ITS | Continuity of Care Document ---
Author Organization [facility] Address [address] [place] [address]- Care Team Providers Care Home Office Claims Examiner Name Role Phone Ros HYMAN, Laxmi Vazquez Primary Care Physicia n En[place] [facility] [place] Date(s): 11/10/23 - 12/10/23 [facility] [address] [place] [address]- Attending Physician: Judith Grubbs Admitting Physician: Judith [...] Stop Date: 09/10/24 Status: Ordered NuLYTELY Lemon [place] oral powder for reconstitution See Instructions, as [...] Reference Physician Member Role: PCP Address: Address: [address] [place] [address] Name: Esther Liu NP Position: [facility] Associate Professional Member Role: Primary Care Nurse Care Team Related Persons Name: CANDY MAR Address: [address] Address: home [address] [place] [address] Name: CANDY MAR Address: home [address] [address] Name: BART SOLORIO Address: home [address] [place] [address] Name: CLINTON FREITAS Address: home [place] [id number]
--- OUTSIDE RECORDS SUMMARY | 2024-03-22 18:18 | XMS_ITS | Continuity of Care Document ---
Author Organization [facility] Address [address] [place] [address] ve [address] [place] [address]- Care Team Providers Care Tank Refinisher Name Role Phone Laxmi Sommer NP Primary Care Physicia n Encounter [facility] [place] Date(s): 09/23/23 - 10/23/[address] [place] [address]- Allergies, Adverse Reactions, Alerts No Known Allergies [...] Stop Date: 09/10/24 Status: Ordered NuLYTELY Lemon [place] oral powder for reconstitution See Instructions, as [...] Physician Member Role: PCP Address: Address: [address] [place] [address] Name: Esther Liu NP Position: [facility] Associate Professional Member Role: Primary Care Nurse Care Team Related Persons Name: CANDY MAR Address: [address] Address: home [address] [place] [address] Name: CANDY MAR Address: home [address] [facility] 4 [place] [address] Name: BART SOLORIO Address: home [address] [place] [address] Name: CLINTON FREITAS Address: [place] [address]
--- OUTSIDE RECORDS SUMMARY | 2024-03-22 18:18 | XMS_ITS | Continuity of Care Document ---
Author Organization [facility] Address [address] [place] [address] [address] [place] [address]- Care Team Providers Care Security Installation Sales Technician Name Role Phone Ros HYMAN, Laxmi Vazquez Primary Care Physicia n Encounter [facility] [place] Date(s): 01/15/24 - 01/22/[address] [place] [address]- Attending Physician: Edelmira Angulo RD Allergies, Adverse [...] 15:18:00 EDT, Route to Pharmacy Electronically, [facility], Partial fill upon patient [...] Refills, Maintenance, 12/17/23 15:18:00EDT, EC Capsule, [facility], Partial fill upon patient request if the prescription isfor a schedule II opioid drug., 158, cm, 12/17/23 1... Start Date: 12/17/23 Status: Ordered oxyCODONE 5 mg oral tablet 5 mg, 1, tablet, By Mouth, Every 6 hours, PRN, # 8 tablet, Refills 0, Tot. Refills 0, Maintenance, Pain , Moderate, 12/17/23 15:17:00 EDT, Route to Pharmacy Electronically, [facility], Partial fill upon patient [...] Reference Physician Member Role: PCP Address: Address: [address] [place] [address]- Name: Nhung Mcfadden RN Position: S RN Member Role: Primary Care Nurse Name: Esther Liu NP Position: S Associate Professional Member Role: Primary Care Nurse Care Team Related Persons Name: CANDY MAR Address: home [address] [facility] 4 [place] [address] Name: CANDY MAR Address: [address] Address: home [address] [place] [address] Name: BART SOLORIO Address: home [address] [place] [address] Name: CLINTON FREITAS Address: [place] [address]
--- OUTSIDE RECORDS SUMMARY | 2024-03-22 18:19 | XMS_ITS | Continuity of Care Document ---
Author Organization [facility] Address [address] [place] [address] [address]ri [address] [place] [address]- Care Team Providers Care Category Planner Name Role Phone Ros HYMAN, Laxmi Vazquez Primary Care Physicia n Encounter [facility] [place] Date(s): 07/02/23 - 07/09/[address] [place], [place] [address] Attending Physician: Edelmira Angulo RD Allergies, Adverse [...] Maintenance, 01/29/22 10:22:00 EDT, DIS Tablet, [id number], Partial fill upon patient request if the [...] Reference Physician Member Role: PCP Address: Address: [address] [place] [address]- Name: Esther Liu NP Position: [facility] Associate Professional Member Role: Primary Care Nurse Care Team Related Persons Name: CANDY MAR Address: [address] [address] Name: CANDY MAR Address: [address] Address: home [address] [place] [address] Name: BART SOLORIO Address: home [address] [place] [address] Name: CLINOTN FREITAS Address: [place] [address]
[2024-03-22 18:24] LABS: Lactic Acid 2.2 mmol/L (0.5-2.0)
[2024-03-22] MEDS: cefTRIAXone sodium 1 GM in 0.9 % Sodium Chloride 50 ML IV (18:33)
[2024-03-22 18:43] LABS: IDNOW Serial# 08D9AD1C; Strep A Nucleic Acid Negative (Negative)
[2024-03-22 19:07] LABS: Lipase 37 U/L (8-78)
[2024-03-22 19:53] LABS: Reflex Lactate? Lactic Acid Added
[2024-03-22 20:15] LABS: Influenza A PCR NEGATIVE (Negative); Influenza B PCR NEGATIVE (Negative); Resp Syncy Virus RNA Qual PCR NEGATIVE (Negative); SARS COV2 PCR INHOUSE NEGATIVE (Negative)
[2024-03-22 20:35] VITALS: BP 92/53; PULSE 65; RESP 16; TEMP 36.6; O2SAT 98
[2024-03-22] MEDS: iohexoL 350 MG/ML 100 ML INFUS..BTL IV (21:50)
[2024-03-22 22:28] VITALS: BP 91/56; PULSE 72; RESP 18; TEMP 36.9; O2SAT 98
[2024-03-23] VITALS: BP 103/66; PULSE 64; RESP 18; TEMP 37.1; O2SAT 99
[2024-03-23 01:30] VITALS: BP 103/66; PULSE 64; RESP 18; TEMP 37.1; O2SAT 99
== END 2024-03-23 01:30 | disposition home or self-care (01) ==
PROVIDERS: Nurse Practitioner Family; Physician Assistant Medical; Emergency Provider Emergency Medicine Emergency Medical Services
DX: B34.9 Viral infection, unspecified (principal); R07.89 Other chest pain; R50.9 Fever, unspecified; R51.9 Headache, unspecified; J02.9 Acute pharyngitis, unspecified; Z03.818 Encounter for observation for suspected exposure to other biological agents ruled out; Z79.899 Other long term (current) drug therapy
CPT/HCPCS: 0241U; 36415; 71046; 71260; 74177; 80053; 83605; 83690; 83735; 84484; 84702; 85025; 87040; 87651; 93005; 99284; J0696; Q9967